=== PATIENT | male | born 1955 | race Caucasian/White ===

== ENCOUNTER 2017-11-08 10:54 | Emergency (ER) | payer BC ==
[2017-11-08 14:34] LABS: #Basophils 0.1 thou/uL (0.0-0.2); #Eosinphils 0.2 thou/uL (0.0-0.7); #Lymphocytes 1.9 thou/uL (1.20-3.40); #Monocytes 0.6 thou/uL (0.11-0.59); #Neutrophils 4.5 thou/uL (1.40-6.50); %Basophils 0.8 % (0.0-1.0); %Eosinophils 2.7 % (0.0-10.0); %Lymphocytes 25.8 % (21.0-51.0); %Monocytes 8.6 % (0.0-10.0); %Neutrophils 62.2 % (42.0-75.0); Hemoglobin 14.3 g/dL (14.0-18.0); Mean Corpuscular HGB CONC 31.9 g/dL (32.0-36.0); Mean Corpuscular Hemoglobin 30.6 pg (27.0-31.0); Mean Corpuscular Volume 95.8 fL (78.0-98.0); Mean Platelet Volume 8.1 fL (7.4-10.4); Platelet Count 198 thou/uL (130-400); RBC Distribution Width 12.8 % (11.5-14.5); Red Blood Cell (RBC) Count 4.68 mill/uL (4.70-6.10); White Blood Cell (WBC) Count 7.3 thou/uL (4.8-10.8)
--- NOTE | 2017-11-08 14:43 | RAD ---
CHEST 1 VIEW: Date: 11/08/17 HISTORY: Dyspnea. COMPARISON: Radiograph dated 10/03/16. FINDINGS: There are layering opacities in both lung bases and mild blunting of both costophrenic sulci, althoug h the lungs are hypoinflated. Cardiac silhouette and mediastinal contours are similar. No acute osseo us abnormality. IMPRESSION: Linear opacities both lower lobes, likely sequelae of combination of atelectasis due to lung hypoinfl ation interposed on scarring. No definitive evidence of pneumonia. POS: [facility]
[2017-11-08 14:55] LABS: ALT (SGPT) 16 U/L (8-55); AST (SGOT) 18 U/L (5-34); Albumin 4.1 g/dL (3.5-5.0); Alkaline Phosphatase 73 U/L (40-150); Anion Gap 10 mmol/L (10-20); BUN (Urea Nitrogen) 17 mg/dL (8.4-25.7); Bilirubin, Total 0.3 mg/dL (0.2-1.2); CK (CPK) 61 U/L (30-200); Calc. Creatinine Clearance 0 mL/min (70-130); Calcium 9.4 mg/dL (7.8-10.44); Carbon Dioxide 33 mmol/L (22-29); Chloride 101 mmol/L (98-107); Estimated GFR-MDRD 72; Globulin 2.9 g/dL (2.4-3.5); Glucose 91 mg/dL (70-105); Potassium 4.6 mmol/L (3.5-5.1); Sodium 139 mmol/L (136-145)
[2017-11-08 15:14] LABS: CKMB 2.6 ng/mL (0-6.6); Troponin I Less than 0.010 ng/mL (< 0.028)
--- NOTE | 2017-11-10 12:42 | EKG ---
Test Reason : Blood Pressure : / mmHG Vent. Rate : 086 BPM Atrial Rate : 086 BPM P-R Int : 120 ms QRS Dur : 090 ms QT Int : 358 ms P-R-T Axes : 076 -72 052 degrees QTc Int : 428 ms Normal sinus rhythm Left anterior fascicular block Abnormal ECG Confirmed by MEHRAN STEPHEN, CRISTOPHER ([id number]), photograph editor OCTAVIA MILLS ([id number]) on 11/10/2017 12:42:01 PM Referred By: Confirmed By:CRISTOPHER LAURENT MD
== END 2017-11-08 15:52 | disposition home or self-care (01) ==
LOC: ERS 10:54
DX: J44.9 Chronic obstructive pulmonary disease, unspecified (principal); F17.210 Nicotine dependence, cigarettes, uncomplicated; Z71.6 Tobacco abuse counseling; I48.91 Unspecified atrial fibrillation; Z79.899 Other long term (current) drug therapy; Z79.82 Long term (current) use of aspirin
CPT/HCPCS: 36415; 71045; 80053; 82553; 83880; 84484; 85025; 85379; 93005; 94640; 99406; J7620

== ENCOUNTER 2017-12-04 00:22 | Observation (INO) | payer BC ==
[2017-12-04] MEDS ORDERED: Nitroglycerin 0.4 MG TAB (25 Tab Bottle) ONE (01:07)
[2017-12-04 01:30] LABS: #Basophils 0.1 thou/uL (0.0-0.2); #Eosinphils 0.2 thou/uL (0.0-0.7); #Monocytes 1.1 thou/uL (0.11-0.59); #Neutrophils 7.9 thou/uL (1.40-6.50); %Basophils 0.6 % (0.0-1.0); %Eosinophils 1.9 % (0.0-10.0); %Lymphocytes 17.8 % (21.0-51.0); %Monocytes 9.5 % (0.0-10.0); %Neutrophils 70.2 % (42.0-75.0); Hemoglobin 15.5 g/dL (14.0-18.0); Mean Corpuscular HGB CONC 32.7 g/dL (32.0-36.0); Mean Corpuscular Hemoglobin 31.2 pg (27.0-31.0); Mean Corpuscular Volume 95.2 fL (78.0-98.0); Mean Platelet Volume 8.1 fL (7.4-10.4); Platelet Count 214 thou/uL (130-400); RBC Distribution Width 12.8 % (11.5-14.5); Red Blood Cell (RBC) Count 4.98 mill/uL (4.70-6.10); White Blood Cell (WBC) Count 11.3 thou/uL (4.8-10.8)
[2017-12-04 01:42] LABS: ALT (SGPT) 22 U/L (8-55); AST (SGOT) 21 U/L (5-34); Albumin 4.4 g/dL (3.5-5.0); Alkaline Phosphatase 80 U/L (40-150); Anion Gap 15 mmol/L (10-20); BUN (Urea Nitrogen) 29 mg/dL (8.4-25.7); Bilirubin, Total 0.3 mg/dL (0.2-1.2); Calc. Creatinine Clearance 0 mL/min (70-130); Calcium 9.3 mg/dL (7.8-10.44); Carbon Dioxide 29 mmol/L (22-29); Chloride 101 mmol/L (98-107); Estimated GFR-MDRD 57; Globulin 2.7 g/dL (2.4-3.5); Glucose 102 mg/dL (70-105); Potassium 4.9 mmol/L (3.5-5.1); Protein, Total 7.1 g/dL (6.0-8.3); Sodium 140 mmol/L (136-145)
[2017-12-04 01:45] LABS: Troponin I 0.018 ng/mL (< 0.028)
[2017-12-04] MEDS ORDERED: Water For Inject, Bacteriostat 30 ML ONE (02:20)
[2017-12-04] MEDS ORDERED: methylPREDNISolone Sod Succ/PF 125 MG/2 ML VIAL ONE (02:20)
[2017-12-04] MEDS ORDERED: Ondansetron ODT 4 MG TAB SL PRN (03:51)
[2017-12-04] MEDS ORDERED: Ondansetron HCl/PF 4 MG/2 ML Vial IVP PRN (03:51)
[2017-12-04] MEDS ORDERED: Acetaminophen 325 MG TAB PO PRN (03:51)
[2017-12-04] MEDS ORDERED: Aspirin 300 MG Suppository PR SCH (04:45)
[2017-12-04 04:47] LABS: Troponin I 0.013 ng/mL (< 0.028)
[2017-12-04 07:28] LABS: Troponin I 0.014 ng/mL (< 0.028)
--- NOTE | 2017-12-04 08:07 | CT ---
PRELIMINARY REPORT/[facility]/EMERGENTY AFTER-HOURS PROCEDURE CT Angiography Chest With Intravenous Contrast EXAM DATE/TIME: 12/04/2017 3:04 AM CLINICAL HISTORY: 61 years old, male; Pain; Chest pain; Type not specified; Patient HX: 61 yo m presents to ed with [facility] pain. PT reports chest pain/pressure that started around 9: 45 pm last night while sitting in his chair at home, with associated dizziness and lightheadedness TECHNIQUE: Axial computed tomographic angiography images of the chest with intravenous contrast using CT angiography protocol. MIP reconstructed images were created and reviewed. COMPARISON: No relevant prior studies available. FINDINGS: Pulmonary arteries: Some motion artifact noted, mostly on the left. No pulmonary embolus identified. Aorta: No aortic aneurysm. No aortic dissection. Lungs: Paraseptal and mild centrilobular emphysematous changes. Calcified right upper lobe granuloma. No mass or consolidation. Pleural space: No pneumothorax. No pleural effusion. Heart: Unremarkable. No pericardial effusion. Bones/joints: Unremarkable. No acute fracture. Soft tissues: Small fat containing abdominal wall hernia in the epigastrium. Lymph nodes: Subcentimeter bilateral hilar and mediastinal lymph nodes, some calcified. Upper abdomen: Small medial diaphragmatic hernia on the left containing fat and apparently part of th e adrenal gland. Several small bilateral renal cysts. Calcified splenic granulomas. IMPRESSION: No acute findings. Thank you for allowing us to participate in the care of your patient. Dictated and Authenticated by: Albert Wilson MD 12/04/2017 4:05 AM Central Time ([place] & [place]) FINAL REPORT CT ANGIOGRAM OF THE CHEST: HISTORY: Hypotension. Dyspnea. COMPARISON: None. TECHNIQUE: CT angiogram of the chest was performed in the axial plane. Three-dimensional reformatted images are submitted for interpretation. FINDINGS: This report is in agreement with the preliminary report by [facility]. No evidence of pulmonary arterial em bolism to the level of the segmental arteries. There are emphysematous changes as described in the p reliminary report by [facility]. No consolidation. Bilateral lower lobe atelectasis is suspected. Additio nal findings as reported in the preliminary report by [facility]. POS: [facility]
--- NOTE | 2017-12-04 08:20 | RAD ---
CHEST 1 VIEW: HISTORY: Chest pain. COMPARISON: Chest radiograph 11/08/2017. FINDINGS: There are chronic increased interstitial markings in the lung bases, likely scarring. No pneumothora x. No effusion. No acute osseous abnormality. IMPRESSION: No acute intrathoracic abnormality. POS: [facility]
[2017-12-04 08:38] VITALS: BP 113/74; TEMP 97.4
--- NOTE | 2017-12-04 10:37 | SS ---
DATE OF ADMISSION: 12/04/2017 DATE OF DISCHARGE: 12/04/2017 DISCHARGE DISPOSITION: Home. FOLLOWUP: 1. Follow up with batch dumper at [facility] or Dr. Ventura in 1 week. Please note that Dr. Ventura is ou t of [facility]. 2. Follow up with [facility] in 1 week. ALLERGIES: No known drug allergies. DISCHARGE MEDICATIONS: Same as admission medications. CHIEF COMPLAINT: Chest discomfort. HISTORY OF PRESENT ILLNESS: The patient is a 61-year-old male with paroxysmal atrial fibrillation wi th a negative cardiac catheterization in 07/2016 presented to the emergency room with chest discomfor t that started around 10:00 p.m. last night. He was resting at home. It was epigastric/substernal a ssociated with lightheadedness and dizziness. It was dull in nature without any aggravating or relie ving factor. He denies any radiation. No nausea, vomiting, diaphoresis or syncope reported. He int ermittently gets this kind of pain for which he takes an extra dose of aspirin. He was seen in the e mergency room 2 weeks ago for COPD exacerbation. In the emergency room, his EKG showed sinus rhythm with left anterior fascicular block without signif icant ST-T wave changes. CT angiogram of the chest as well as chest x-ray was negative. His troponi ns were negative. PAST MEDICAL HISTORY: 1. Paroxysmal atrial fibrillation. He was admitted at this facility in 07/2016 for this reason. An ticoagulation was started. He is currently on aspirin per [facility]. He states that Eliquis was dis continued. Eliquis was discontinued by his primary care physician. 2. Cardiomyopathy. His ejection fraction was 40% range on last admission. 3. History of tobacco abuse. He quit smoking recently. He is currently on Chantix. 4. Chronic obstructive pulmonary disease. PAST SURGICAL HISTORY: 1. Cardiac catheterization last year which was negative. 2. Hernia repair. ALLERGIES: No known drug allergies. CURRENT HOME MEDICATIONS: Aspirin 325 mg daily, Coreg 3.125 mg b.i.d., DuoNebs as needed, lisinopril 10 mg daily, Aleve as needed, Lasix 20 mg daily, Chantix twice a day. SOCIAL HISTORY: As discussed above. He denies any alcohol use. He lives at home with his family. He is FULL CODE. FAMILY HISTORY: Positive for heart disease. REVIEW OF SYSTEMS: The following complete review of systems was negative, unless otherwise mentioned in the HPI or below: Constitutional: Weight loss or gain, ability to conduct usual activities. Skin: Rash, itching. Eyes: Double vision, pain. ENT/Mouth: Nose bleeding, neck stiffness, pain, tenderness. Cardiovascular: Palpitations, dyspnea on exertion, orthopnea. Respiratory: Shortness of breath, wheezing, cough, hemoptysis, fever or night sweats. Gastrointestinal: Poor appetite, abdominal pain, heartburn, nausea, vomiting, constipation, or diarr hea. Genitourinary: Urgency, frequency, dysuria, nocturia. Musculoskeletal: Pain, swelling. Neurologic/Psychiatric: Anxiety, depression. Allergy/Immunologic: Skin rash, bleeding tendency. PHYSICAL EXAMINATION: VITAL SIGNS: In the emergency room showed temperature 97.4, respirations 16, pulse of 103, blood pre ssure 107/62 with O2 saturation 96% on room air. GENERAL: A 61-year-old male in no apparent distress. Denies any chest pain. HEENT: Head is atraumatic, normocephalic. Sclerae are anicteric. Moist mucous membrane, no oral le sulaiman. NECK: Supple, no JVD, no carotid bruit. LUNGS: Clear to auscultation bilaterally, no wheezing, rales or rhonchi. HEART: S1, S2 present. Regular rate and rhythm. No murmur, rubs, or gallops appreciated. No repro ducible chest wall tenderness. ABDOMEN: Soft, nontender, bowel sounds present. EXTREMITIES: No edema or calf tenderness. NEUROLOGIC: Grossly nonfocal, moves all four extremities. PSYCHIATRIC: Alert, awake, oriented x3. SKIN: Warm and dry. LYMPH NODES: No palpable lymph nodes in the neck. PERIPHERAL VASCULAR: Radial pulses palpable bilaterally. MUSCULOSKELETAL: No joint swelling or tenderness. LABORATORY DATA: Troponin negative. CBC showed WBC 11.3 with hemoglobin 15.5, potassium 4.9, chlori de 101 and bicarbonate 29. BNP was 16.6. IMAGING DATA: EKG and chest x-ray by my review as discussed above. IMPRESSION: 1. Atypical chest pain. Acute coronary syndrome has been ruled out. A chest pain is probably secon elvia to GERD. Another possibility could be paroxysmal atrial fibrillation. He remained in sinus rhy thm during this hospitalization. His EKG showed sinus rhythm. He was started on amiodarone and Eliq uis last admission; however, this has been discontinued as outpatient. He was advised to follow up w [facility] either at [facility] or Dr. Ventura. He has not seen Dr. Ventura for more than a year. The patient states that he cannot afford Eliquis. We will continue aspirin for now. Dr. Ventura is ou t of town this week. 2. Chronic obstructive pulmonary disease. We will continue his home medications. 3. Nonischemic cardiomyopathy, ejection fraction 40% range. We will continue TONE inhibitor, beta bl ockers. His BNP is normal. We will continue low dose Lasix. 4. Tobacco dependence. He recently quit smoking and is currently on Chantix. 5. Obesity with a BMI at 30. 6. Chronic kidney disease stage 3. 7. Negative cardiac catheterization in 2017. Plan of care was discussed with the patient in detail, he stated understanding.
[2017-12-04] MEDS ORDERED: ISOVUE-370 76%-LOCM 1 ML ONE (15:55)
== END 2017-12-04 10:57 | disposition home or self-care (01) ==
LOC: ERS 00:22 → 2SW 02:30
PROVIDERS: ADMIT Hospitalist; ATTEND Hospitalist
DX: R07.89 Other chest pain (principal); I48.0 Paroxysmal atrial fibrillation; J44.9 Chronic obstructive pulmonary disease, unspecified; I42.8 Other cardiomyopathies; N18.3 Chronic kidney disease, stage 3 (moderate); E66.9 Obesity, unspecified; Z68.30 Body mass index [BMI] 30.0-30.9, adult; Z87.891 Personal history of nicotine dependence; Z79.82 Long term (current) use of aspirin; Z79.899 Other long term (current) drug therapy
CPT/HCPCS: 36415; 71045; 71275; 80053; 82553; 83880; 84484; 85025; 93005; 96374; 99406; G0378; J2930; J7620

== ENCOUNTER 2018-06-06 13:57 | Inpatient (IN) | payer BC, OTHER, SELFPAY ==
[2018-06-06] MEDS ORDERED: Diltiazem 125 MG/25 ML ONE (14:23)
--- NOTE | 2018-06-06 14:53 | RAD ---
SINGLE VIEW CHEST: Date: 06/06/18 COMPARISON: 12/04/17. HISTORY: Syncope and dyspnea. FINDINGS: Single view of the chest shows normal sized cardiomediastinal silhouette. There is elevation of the r ight hemidiaphragm. Increased interstitial lung markings are present. There is no evidence of consoli dation, mass, or pleural effusion. IMPRESSION: No evidence of acute cardiopulmonary disease. POS: [facility]
[2018-06-06 15:13] LABS: #Eosinphils 0.1 thou/uL (0.0-0.7); #Lymphocytes 1.9 thou/uL (1.20-3.40); #Monocytes 1.1 thou/uL (0.11-0.59); #Neutrophils 7.3 thou/uL (1.40-6.50); %Basophils 0.4 % (0.0-1.0); %Eosinophils 0.8 % (0.0-10.0); %Monocytes 10.5 % (0.0-10.0); %Neutrophils 70.3 % (42.0-75.0); Hemoglobin 13.8 g/dL (14.0-18.0); Mean Corpuscular HGB CONC 32.1 g/dL (32.0-36.0); Mean Corpuscular Hemoglobin 30.3 pg (27.0-31.0); Mean Corpuscular Volume 94.4 fL (78.0-98.0); Mean Platelet Volume 8.2 fL (7.4-10.4); Platelet Count 215 thou/uL (130-400); Red Blood Cell (RBC) Count 4.54 mill/uL (4.70-6.10); White Blood Cell (WBC) Count 10.3 thou/uL (4.8-10.8)
[2018-06-06 15:30] LABS: ALT (SGPT) 9 U/L (8-55); AST (SGOT) 13 U/L (5-34); Albumin 3.6 g/dL (3.4-4.8); Alkaline Phosphatase 92 U/L (40-150); Anion Gap 10 mmol/L (10-20); BUN (Urea Nitrogen) 11 mg/dL (8.4-25.7); Bilirubin, Total 0.4 mg/dL (0.2-1.2); Calc. Creatinine Clearance 0 mL/min (70-130); Carbon Dioxide 36 mmol/L (23-31); Chloride 95 mmol/L (98-107); Estimated GFR-MDRD 49; Glucose 91 mg/dL (80-115); Magnesium 2.1 mg/dL (1.6-2.6); Potassium 4.9 mmol/L (3.5-5.1); Protein, Total 6.6 g/dL (5.8-8.1); Sodium 136 mmol/L (136-145)
--- NOTE | 2018-06-06 15:59 | PDOC.FPRHP ---
- History of Present Illness Chief Complaint: SOB History of Present Illness: 62 yo M with PMH a fib, COPD, HFrEF presents for weakness, SOB that began this morning at 11:00. 3 siblings in room at time of interview. Notes started to feel short of breath, heart beating fast, lightheaded. Had few episodes vomiting and reports "passing out" 5-6 times at home. Fell but denies hitting head. No cough, increased sputum, fever. Has h/o BLE edema that has been worse previously. Home O2 requirement of 2L, denies ever being on Bipap before. Last hospitalized at [facility] [place] [place], 02/2018 for COPD exacerbation. Since this hospitalization he has had full body tingling/burning sensation that keeps him from sleeping at night. Has been told it is RLS. PCP, cardiology, caustic room attendant (Pop) at the [facility]. ED Course: chi harp drip - Allergies/Adverse Reactions Allergies Allergy/AdvReac Type Severity Reaction Status Date / Time No Known Allergies Allergy Verified 09/23/13 13:26 - Home Medications Medication Instructions Recorded Confirmed Type Furosemide [Lasix] 20 mg PO DAILY #30 tab 07/22/16 06/06/18 Rx Carvedilol [Coreg] 6.25 mg PO BID 10/04/16 06/06/18 History Lisinopril 10 mg PO DAILY 10/04/16 06/06/18 History Albuterol Sulfate [Proair HFA] 1 - 2 puff INH PRN PRN 12/04/17 06/06/18 History Aspirin 325 mg PO DAILY 12/04/17 06/06/18 History Ipratropium/Albuterol Sulfate 3 ml NEB TID 12/04/17 06/06/18 History [DuoNeb] Naproxen Sodium [Aleve] 220 mg PO TID PRN 12/04/17 06/06/18 History Escitalopram Oxalate 20 mg PO DAILY 06/06/18 06/06/18 History Gabapentin 400 mg PO BID 06/06/18 06/06/18 History Mometasone Furoate [Asmanex 1 puff INH QPM 06/06/18 06/06/18 History Twisthaler] Mometasone Furoate [Asmanex 2 puff INH BID 06/06/18 06/06/18 History Twisthaler] Tiotropium Br/Olodaterol HCl 2.5 gm IH QAM 06/06/18 06/06/18 History [Stiolto Respimat Inhal [place]] Tiotropium Br/Olodaterol HCl 2.5 gm IH QAM 06/06/18 06/06/18 History [Stiolto Respimat Inhal [place]] rOPINIRole HCl [Ropinirole HCl] 2 tab PO HS 06/06/18 06/06/18 History traZODone HCl [Trazodone HCl] 100 mg PO HS 06/06/18 06/06/18 History - History PMHx: a fib, COPD, HFrEF (echo 07/2016 with EF 35-40%), RLS PSHx: cath 2016, hernia x2, ablation (in previous H&P but patient denies) FHx: father-prostate cancer, brother-kidney cancer, sister-colon cancer Social: Current pack year, 1PPD for 45 years. No tobacco, alcohol, drug use. - Review of Systems General: reports: fatigue. denies: fever/chills, weight/appetite/sleep changes Eyes: denies: vision changes Respiratory: reports: cough (chronic), shortness of breath, exercise intolerance Cardiovascular: reports: palpitation, edema. denies: chest pain Gastrointestinal: reports: vomiting. denies: diarrhea, abdominal pain Genitourinary: denies: dysuria Skin: denies: rashes Musculoskeletal: reports: swelling. denies: pain Neurological: reports: numbness, syncope, weakness Psychological: reports: anxiety - Vital signs Pulse: 134, Resp: 27, O2 sat: 98 on bipap, temp 98.2 - Physical Exam Constitutional: other (on bipap) HEENT: normocephalic and atraumatic, grossly normal vision, grossly normal hearing Neck: other (large neck) Heart: normal S1/S2, other (1+ RLE pitting edema, trace LLE edema. irregular rate) Lungs: no retractions, other (mild crackles) Abdomen: soft, non-tender, bowel sounds present Musculoskeletal: other (generalized weakness) Skin: no rash/lesions Heme/Lymphatic: no unusual bruising or bleeding Psychiatric: normal mood and affect FMR H&P: Results - Labs Result Diagrams: 06/07/18 04:51 06/07/18 04:51 Lab results: WBC 10.3 thou/uL (4.8-10.8) 06/06/18 14:38 Hgb 13.8 g/dL (14.0-18.0) L 06/06/18 14:38 Hct 42.9 % (42.0-52.0) 06/06/18 14:38 MCV 94.4 fL (78.0-98.0) 06/06/18 14:38 Plt Count 215 thou/uL (130-400) 06/06/18 14:38 Neutrophils % 70.3 % (42.0-75.0) 06/06/18 14:38 Sodium 136 mmol/L (136-145) 06/06/18 14:38 Potassium 4.9 mmol/L (3.5-5.1) 06/06/18 14:38 Chloride 95 mmol/L (98-107) L 06/06/18 14:38 Carbon Dioxide 36 mmol/L (23-31) H 06/06/18 14:38 BUN 11 mg/dL (8.4-25.7) 06/06/18 14:38 Creatinine 1.45 mg/dL (0.7-1.3) H 06/06/18 14:38 Glucose 91 mg/dL (80-115) 06/06/18 14:38 Calcium 9.0 mg/dL (7.8-10.44) 06/06/18 14:38 Total Bilirubin 0.4 mg/dL (0.2-1.2) 06/06/18 14:38 AST 13 U/L (5-34) 06/06/18 14:38 ALT 9 U/L (8-55) 06/06/18 14:38 Alkaline Phosphatase 92 U/L (40-150) 06/06/18 14:38 B-Natriuretic Peptide 25.5 pg/mL (0-100) 06/06/18 14:38 Serum Total Protein 6.6 g/dL (5.8-8.1) 06/06/18 14:38 Albumin 3.6 g/dL (3.4-4.8) 06/06/18 14:38 FMR H&P: A/P - Problem List (1) Acute and chronic respiratory failure with hypoxia Current Visit: Yes Status: Acute Code(s): J96.21 - ACUTE AND CHRONIC RESPIRATORY FAILURE WITH HYPOXIA (2) Atrial fibrillation with rapid ventricular response Current Visit: Yes Status: Acute Code(s): I48.91 - UNSPECIFIED ATRIAL FIBRILLATION (3) HFrEF (heart failure with reduced ejection fraction) Current Visit: Yes Status: Acute Code(s): I50.20 - UNSPECIFIED SYSTOLIC ( CONGESTIVE) HEART FAILURE (4) Acute kidney injury Current Visit: Yes Status: Acute Code(s): N17.9 - ACUTE KIDNEY FAILURE, UNSPECIFIED (5) COPD (chronic obstructive pulmonary disease) Current Visit: Yes Status: Chronic Qualifiers: COPD type: unspecified COPD Qualified Code(s): J44.9 - Chronic obstructive pulmonary disease, unspecified (6) Restless legs syndrome (RLS) Current Visit: Yes Status: Chronic (7) Anxiety Current Visit: Yes Status: Chronic Code(s): F41.9 - ANXIETY DISORDER, UNSPECIFIED (8) CKD (chronic kidney disease) Current Visit: Yes Status: Chronic Code(s): N18.9 - CHRONIC KIDNEY DISEASE, UNSPECIFIED - Plan Acute hypoxic respiratory failure - requiring Bipap in ED, uses 2L NC at home. - unclear cause at this time. Does not appear to be infectious, symptoms more consistent with CHF exacerbation rather than COPD exac though BNP wnl - Lasix 40 IV ordered, will monitor fluid status with strict I/Os, daily weights and adjust diuresis as necessary - CXR showed elevated R hemidiaphragm, increased interstitial lung markings - VBG pending. Will repeat CXR this evening and adjust plan pending clinical course. Will not start steroids at this time. A fib with RVR - HR 130s with dilt drip @ 5, ER titrating up now. ER reports HR was 170s. - hx of a fib, unsure if has had ablation in past. Record from admission last year showed reported NSR. - EKG shows a fib with RVR - trop neg x1, continue to trend HFrEF - last echo in our record with EF 35-40% in 07/2016 - BNP 25 - continue home carvedilol, lisinopril, aspirin - not on statin, will check lipids - will consider repeating echo DEANDRE on CKD3 - Cr 1.45 on admission - will continue to monitor on am bmp COPD - pt reports 2L NC. Has albuterol and stiolto inhalers at home - duonebs prn RLS - unusual complaint of full body tingling/burning - continue home ropinirole, gabapentin - check B12, folate, A1c Anxiety/depression - continue home escitalopram, trazodone Ppx: lovenox Diet: HH, NPO while on bipap Dispo: admit to IMCU, expect stay >2 midnights PCP: [facility] Case discussed with Dr. Del Rosario FMR H&P: [facility] - Pertinent history 62 yo male here for syncope and vomiting. Reports it started this morning when he felt light headed around 11:00am. Patient reports having 5 episodes of syncope today, mostly unwitnessed. Also had an episode of emesis after one of the episodes. Pt denies head trauma, but again falls were unwitnessed. Pt lives at home alone and uses 2L NC always, even when sleeping, at home, has not been having worsening O2 requirement recently due to COPD. Also has been having heart palpitations, uncertain on time course. Assoc body tingling. Decreased sleep 2/2 leg pain which has been treated in the past as restless leg. Hx of Afib with RVR, tobacco abuse, hx of cardiac cath. In ER patient was found to be in afib with RVR via EKG with rate in the 140s. In the room, patient had hypoxia and required bipap 40% fio2. On exam, HR elevated at 130s-150. 105/70. O2sat moving from low 80s% when talking to >94% when resting. RR: 27. - Pertinent findings GEN: NAD, breathing with bipap PULM: trace diffuse crackles CARD: irreg irreg, tachy EXT: b/l pitting edema LE BNP: 25 Cr: 1.45 EKG: afib with rate 140s - Plan Date/Time: 06/06/18 [id number] IAlexis DO, have evaluated this patient and agree with findings/plan as outlined by dental internship resident. Pertinent changes/additions are listed here. #acute hypoxic resp failure -mixed picture of fluid overload due to her leg edema as well as crackles on CXR ; also consideration for dehydration due to vomiting, though BUN/Cr is not impressive for dehydration -will give Lasix and reassess -recheck CXR -VBG #Afib with RVR -started on diltiazem 5units, increased to 10units -continue with diltiazem #DEANDRE #HTN #RLS Addendum - Attending - Attending Attestation Date/Time: 06/07/18 8305 I personally evaluated the patient and discussed the management with the team on day of admission. I agree with the History, Examination, Assessment and Plan documented above with any addition or exceptions noted below.
[2018-06-06] MEDS ORDERED: Ondansetron PF 4 MG/2 ML Vial IVP PRN (17:15)
[2018-06-06] MEDS ORDERED: Ondansetron ODT 4 MG TAB PO PRN (17:15)
[2018-06-06] MEDS ORDERED: Acetaminophen 325 MG TAB PO PRN (17:15)
--- NOTE | 2018-06-06 17:25 | PDOC.EVN ---
Event Note - Event Note Event Note: 62 y/o M with PMH afib, HFrEF, COPD presents with Afib with RVR and several episodes of emesis after this started. He was noted to be in resp failure and placed on bipap with improvement in his saturations. He says he feels a bit better now. No chest pain. On exam he is tachypneic, with mild accessory use, scant bibasilar crackles and no wheezes. He is tachy, irreg, without murmur, with LE edema. I have reviewed his labs and imaging. On POCUS, his lungs exhibit bilateral B lines and I can find no A lines in the bases. He has good air movement. Continue dilt gtt, begin gentle diuresis. Obtain VBG and likely can deescalate to CPAP vs NC. Monitor closely in IMCU. I do not anticipate decompensation.
[2018-06-06] MEDS ORDERED: Furosemide 20 MG/2 ML VIAL ONE (17:40)
[2018-06-06 17:42] LABS: Troponin I 0.063 ng/mL (< 0.028)
[2018-06-06 20:38] LABS: Troponin I 0.078 ng/mL (< 0.028)
[2018-06-06] MEDS: Carvedilol 6.25 MG TAB PO SCH (21:51)
[2018-06-06] MEDS: Gabapentin 400 MG CAP PO SCH (21:51)
[2018-06-06] MEDS: rOPINIRole HCl 1 MG TAB PO SCH (21:52)
[2018-06-06] MEDS: Nicotine 21 MG PATCH TD SCH (21:52)
--- NOTE | 2018-06-06 21:56 | RAD ---
EXAM: Chest one view: HISTORY: Difficulty breathing COMPARISON: 06/06/2018 FINDINGS: Monitor leads overlie the chest. Heart size: Within normal limits. The lungs: Scattered linear and interstitial parenchymal changes in the perihilar regions and both desi ng bases more so on the right with associated right hemidiaphragm elevation. No significant new process. IMPRESSION: Stable increased markings in the bases and right hemidiaphragm elevation. No new process. Signed repo rt.
[2018-06-06 22:09] VITALS: BMI 35.1
[2018-06-06] MEDS ORDERED: Diltiazem HCl 125 MG, Admixture Fee 1 EACH in Sodium Chloride 0.9% 100 ML IVPB SCH (23:30)
[2018-06-07 05:22] LABS: #Basophils 0.1 thou/uL (0.0-0.2); #Eosinphils 0.1 thou/uL (0.0-0.7); #Lymphocytes 1.8 thou/uL (1.20-3.40); #Monocytes 0.7 thou/uL (0.11-0.59); #Neutrophils 4.6 thou/uL (1.40-6.50); %Eosinophils 1.5 % (0.0-10.0); %Lymphocytes 24.9 % (21.0-51.0); %Monocytes 9.9 % (0.0-10.0); %Neutrophils 62.7 % (42.0-75.0); Hemoglobin 13.4 g/dL (14.0-18.0); Mean Corpuscular HGB CONC 30.6 g/dL (32.0-36.0); Mean Corpuscular Hemoglobin 28.8 pg (27.0-31.0); Mean Corpuscular Volume 93.9 fL (78.0-98.0); Mean Platelet Volume 7.7 fL (7.4-10.4); Platelet Count 178 thou/uL (130-400); Red Blood Cell (RBC) Count 4.65 mill/uL (4.70-6.10); White Blood Cell (WBC) Count 7.4 thou/uL (4.8-10.8)
[2018-06-07 05:35] LABS: Anion Gap 10 mmol/L (10-20); BUN (Urea Nitrogen) 17 mg/dL (8.4-25.7); Calc. Creatinine Clearance 94 mL/min (70-130); Carbon Dioxide 34 mmol/L (23-31); Cardiac Risk 4.3 (Less than 4.5); Chloride 95 mmol/L (98-107); Cholesterol 124 mg/dl (< 200 Desired); Estimated GFR-MDRD 56; Glucose 109 mg/dL (80-115); HDL Cholesterol 29 mg/dL (>60 Neg Risk); LDL Cholesterol, Calculated 80 mg/dL; Potassium 3.9 mmol/L (3.5-5.1); Sodium 135 mmol/L (136-145); Triglycerides 73 mg/dL (Less than 150)
[2018-06-07 06:07] LABS: Folate (Folic Acid) 9.5 ng/mL (7.0-31.4)
--- NOTE | 2018-06-07 06:49 | PDOC.FM ---
- Subjective Subjective: Patient still on bipap, was on NC 3L satting well last night but patient requested bipap for comfort. Denies any pain. - Objective Vital Signs & Weight: Vital Signs (12 hours) Temp Pulse Resp BP Pulse Ox 06/07/18 03:48 97.2 F L 06/07/18 02:25 14 100 06/07/18 01:38 80 20 99 06/07/18 00:00 97.7 F 06/06/18 21:51 137/83 06/06/18 20:00 97 06/06/18 19:35 98.4 F Weight Weight 111.493 kg Most Recent Monitor Data Heart Rate from ECG 59 NIBP 120/78 NIBP BP-Mean 92 Respiration from ECG 13 SpO2 98 I&O: 06/05/18 06/06/18 06/07/18 06:59 06:59 06:59 Intake Total 575 Output Total 340 Balance 235 Result Diagrams: 06/07/18 04:51 06/07/18 04:51 Phys Exam - Physical Examination on bipap, relaxed and sleepy Respiratory: no wheezing, clear to auscultation bilateral Cardiovascular: irregular Gastrointestinal: soft, non-tender, positive bowel sounds 1+ pitting edema LE, L>R Neurological: non-focal Skin: normal turgor Dx/Plan (1) Acute and chronic respiratory failure with hypoxia Code(s): J96.21 - ACUTE AND CHRONIC RESPIRATORY FAILURE WITH HYPOXIA Status: Acute (2) Atrial fibrillation with rapid ventricular response Code(s): I48.91 - UNSPECIFIED ATRIAL FIBRILLATION Status: Acute (3) HFrEF (heart failure with reduced ejection fraction) Code(s): I50.20 - UNSPECIFIED SYSTOLIC (CONGESTIVE) HEART FAILURE Status: Acute (4) Acute kidney injury Code(s): N17.9 - ACUTE KIDNEY FAILURE, UNSPECIFIED Status: Acute (5) COPD (chronic obstructive pulmonary disease) Status: Chronic Qualifiers: COPD type: unspecified COPD Qualified Code(s): J44.9 - Chronic obstructive pulmonary disease, unspecified (6) Restless legs syndrome (RLS) Status: Chronic (7) Anxiety Code(s): F41.9 - ANXIETY DISORDER, UNSPECIFIED Status: Chronic (8) CKD (chronic kidney disease) Code(s): N18.9 - CHRONIC KIDNEY DISEASE, UNSPECIFIED Status: Chronic - Plan Plan: Acute hypoxic respiratory failure - requiring Bipap in ED, uses 2L NC at home. - unclear cause at this time. Afebrile, no leukocytosis. Does not appear to be infectious, symptoms more consistent with CHF exacerbation rather than COPD exac though BNP wnl. Anxiety and felt need for bipap could also be contributing. Plan to wean off bipap today - Lasix 40 IV x1 in ED - CXR showed elevated R hemidiaphragm, increased interstitial lung markings - VBG pending A fib with RVR - rate 170s in ED, now improved rate was 60s this am, titrate dilt drip down to 2.5 - hx of a fib, unsure if has had ablation in past. Record from admission last year showed reported NSR. - EKG a fib with RVR - trop indeterminate - consult cardiology HFrEF - last echo in our record with EF 35-40% in 07/2016 - BNP 25 - continue home carvedilol, lisinopril, aspirin - ASCVD 14%, will start statin - will consider repeating echo DEANDRE on CKD3, improved - Cr 1.45 on admission - will continue to monitor COPD - pt reports home 2L NC. Has albuterol and stiolto inhalers at home - duonebs prn, continue BID inhaler RLS - unusual complaint of full body tingling/burning - continue home ropinirole, gabapentin - B12, folate, A1c all wnl Anxiety/depression - continue home escitalopram, trazodone Ppx: lovenox Diet: HH, NPO while on bipap Dispo: pending cardiology consult, plan to wean off bipap today Addendum - Attending - Attending Attestation Date/Time: 06/07/18 6730 I personally evaluated the patient and discussed the management with Dr. Blair. I agree with the History, Examination, Assessment and Plan documented above with any addition or exceptions noted below. Acute hypoxic resp failure- off bipap and stable on NC. CHF exac- repeat ECHo. appreciate cardiology recs. A fib with RVR- now in NSR. D/c dilt gtt. left lower chest/upper abdomen pain- most consistent in intercostal muscle strain. xray did not show a rib fracture.
[2018-06-07] MEDS: Mometasone Furoate 120 PUFF 220 MCG INH SCH ×2 (08:10→18:33)
[2018-06-07] MEDS ORDERED: [UNRECOGNIZED DRUG - OTHER] IH SCH (09:00)
[2018-06-07] MEDS ORDERED: Gabapentin 400 MG CAP PO SCH (09:00)
[2018-06-07] MEDS ORDERED: Carvedilol 6.25 MG TAB PO SCH (09:00)
[2018-06-07] MEDS ORDERED: OLODATEROL HCL IH SCH (09:00)
[2018-06-07] MEDS ORDERED: TIOTROPIUM BR IH SCH (09:00)
[2018-06-07] MEDS: Carvedilol 6.25 MG TAB PO SCH ×2 (09:39→21:08)
[2018-06-07] MEDS: Aspirin 325 MG TAB PO SCH (09:39)
[2018-06-07] MEDS: Enoxaparin Sodium 40 MG/0.4 ML SYRINGE SC SCH (09:40)
[2018-06-07] MEDS: Gabapentin 400 MG CAP PO SCH ×2 (09:41→21:08)
[2018-06-07] MEDS: Lisinopril 10 MG TAB PO SCH (09:41)
[2018-06-07] MEDS: Escitalopram Oxalate 20 mg Tablet PO SCH (09:41)
[2018-06-07] MEDS ORDERED: Furosemide 20 MG TAB PO SCH (11:00)
[2018-06-07] MEDS: Azithromycin 250 MG TAB PO SCH (11:46)
--- NOTE | 2018-06-07 13:56 | CON ---
DATE OF CONSULTATION: 06/07/2018 This consultation encompassed 70 minutes time. Period of that time, greater than 50% was spent with the patient and/or at the patient's unit in the hospital. REASON FOR CONSULTATION: COPD exacerbation. CONSULTING PHYSICIAN: [facility]. HISTORY OF PRESENT ILLNESS: The patient is a 62-year-old male, who came into the hospital yesterday with increasing shortness of breath and chest congestion. He has a long history of chronic obstructive pulmonary disease and continued tobacco abuse. He is cared for through the [facility]. He has seen Dr. Sifuentes in my practice in the past, but does not follow with him regularly. The patient was on BiPAP last night, but is now off BiPAP this morning. He states that he is starting to breathe better. He states that he continues to smoke because that is the only thing that keeps the mucus out of his airways. PAST MEDICAL HISTORY: COPD, atrial fibrillation, systolic congestive heart failure, restless legs syndrome. PAST SURGICAL HISTORY: Cardiac catheterization, hernia repair, cardiac ablation. FAMILY MEDICAL HISTORY: Father had prostate cancer, brother had kidney cancer, sister had colon cancer. SOCIAL HISTORY: The patient has been smoking 1 pack per day for at least 45 years. Does not consume alcohol. Does not use illicit drugs. MEDICATIONS: Prior to admission, his home medications are listed in the home medications section of the [employer] computer system. His pertinent Pulmonary medications include, 1. Stiolto Respimat 2 puffs daily. 2. Asmanex Twisthaler 2 puffs twice daily. 3. Albuterol ipratropium nebulization solution. REVIEW OF SYSTEMS: He has had no fever, chills, nausea, vomiting, hematemesis, melena, hematochezia, hematuria, or dysuria. He has had left-sided chest pain after falling. PHYSICAL EXAMINATION: VITAL SIGNS: Temperature 96.9, pulse 57, blood pressure 136/76, O2 saturation 96%. GENERAL: He is 5 feet 10 inches, weighs 245 pounds, body mass index is 35.3. HEENT: Demonstrates a class 3 Mallampati airway. NECK: Demonstrates no adenopathy or JVD. CARDIAC: Regular without murmur. LUNGS: Coarse expiratory rhonchi bilaterally. ABDOMEN: Soft, obese, and nontender. EXTREMITIES: No clubbing, cyanosis, or edema. LABORATORY DATA: White blood cell count 7.4, hematocrit 43.7, and platelet count 178. Sodium 135, potassium 3.9, chloride 95, CO2 of 34, BUN 17, creatinine 1.3, glucose 109. ASSESSMENT: 1. Chronic obstructive pulmonary disease with exacerbation. 2. Atrial fibrillation with rapid ventricular response, requiring Cardizem drip. 3. Continued tobacco abuse. PLAN: 1. Switch nebulization treatments to be administered by [facility] to see if this will help minimize his secretions. These nebulization treatments need to be scheduled every 4 hours. 2. Nicotine patch. 3. Mucolytic therapy. 4. I would start him on antibiotics in an attempt to reduce his secretions. Zithromax would be probably the best thing to use. 5. Smoking cessation has been advised. Job ID: [id number]
[2018-06-07] MEDS: traMADol HCl 50 MG TAB PO PRN (17:23)
[2018-06-07] MEDS: Nicotine 21 MG PATCH TD SCH (17:25)
[2018-06-07] MEDS ORDERED: Mometasone Furoate 120 PUFF 220 MCG INH SCH (21:00)
[2018-06-07] MEDS ORDERED: rOPINIRole HCl 0.5 MG TAB PO SCH (21:00)
[2018-06-07] MEDS: Amiodarone 200 MG TAB PO SCH (21:08)
[2018-06-07] MEDS: rOPINIRole HCl 1 MG TAB PO SCH (21:08)
[2018-06-07] MEDS: guaiFENesin ER 600 MG TAB PO SCH (21:08)
[2018-06-07] MEDS: Atorvastatin Calcium 20 MG TAB PO SCH (21:08)
[2018-06-07] MEDS: Enoxaparin Sodium 120 MG/0.8 ML SYRINGE SC SCH (21:09)
[2018-06-08 04:50] LABS: #Eosinphils 0.1 thou/uL (0.0-0.7); #Lymphocytes 1.5 thou/uL (1.20-3.40); #Monocytes 0.7 thou/uL (0.11-0.59); #Neutrophils 5.8 thou/uL (1.40-6.50); %Basophils 0.3 % (0.0-1.0); %Eosinophils 1.8 % (0.0-10.0); %Lymphocytes 18.6 % (21.0-51.0); %Monocytes 8.5 % (0.0-10.0); %Neutrophils 70.8 % (42.0-75.0); Hemoglobin 13.3 g/dL (14.0-18.0); Mean Corpuscular HGB CONC 32.2 g/dL (32.0-36.0); Mean Corpuscular Hemoglobin 30.2 pg (27.0-31.0); Mean Corpuscular Volume 93.9 fL (78.0-98.0); Mean Platelet Volume 7.6 fL (7.4-10.4); Platelet Count 156 thou/uL (130-400); RBC Distribution Width 12.8 % (11.5-14.5); Red Blood Cell (RBC) Count 4.41 mill/uL (4.70-6.10); White Blood Cell (WBC) Count 8.1 thou/uL (4.8-10.8)
[2018-06-08 05:03] LABS: Anion Gap 10 mmol/L (10-20); BUN (Urea Nitrogen) 18 mg/dL (8.4-25.7); Calc. Creatinine Clearance 126 mL/min (70-130); Calcium 9.2 mg/dL (7.8-10.44); Carbon Dioxide 36 mmol/L (23-31); Chloride 97 mmol/L (98-107); Estimated GFR-MDRD 79; Glucose 103 mg/dL (80-115); Potassium 4.5 mmol/L (3.5-5.1); Sodium 138 mmol/L (136-145)
[2018-06-08] MEDS: Mometasone Furoate 120 PUFF 220 MCG INH SCH ×2 (07:19→19:36)
--- NOTE | 2018-06-08 07:39 | PDOC.FM ---
- Subjective Subjective: Pt reports he did well overnight. He denies pain and states he was up to take a shower without significant dyspnea. - Objective Vital Signs & Weight: Vital Signs (12 hours) Temp Pulse Resp BP Pulse Ox 06/08/18 07:17 84 18 94 L 06/08/18 04:05 97.4 F L 80 16 131/83 98 06/08/18 03:30 93 L 06/08/18 00:00 93 L 06/07/18 21:41 106 H 22 H Weight Weight 111.039 kg Most Recent Monitor Data Heart Rate from ECG 84 NIBP 137/98 NIBP BP-Mean 111 Respiration from ECG 18 SpO2 97 I&O: 06/07/18 06/08/18 06/09/18 06:59 06:59 06:59 Intake Total 575 1098.75 Output Total 340 1725 Balance 235 -626.25 Result Diagrams: 06/08/18 04:33 06/08/18 04:33 Phys Exam - Physical Examination Constitutional: NAD HEENT: moist MMs Neck: no JVD, full ROM Respiratory: wheezing present Cardiovascular: no significant murmur regular rate, irregular rhythm Gastrointestinal: soft, non-tender, no distention, positive bowel sounds Musculoskeletal: edema present (2+ pitting bilaterally) Neurological: moves all 4 limbs Psychiatric: A&O x 3 Skin: cap refill <2 seconds Dx/Plan (1) Acute and chronic respiratory failure with hypoxia Code(s): J96.21 - ACUTE AND CHRONIC RESPIRATORY FAILURE WITH HYPOXIA Status: Acute (2) Acute kidney injury Code(s): N17.9 - ACUTE KIDNEY FAILURE, UNSPECIFIED Status: Acute (3) Atrial fibrillation with rapid ventricular response Code(s): I48.91 - UNSPECIFIED ATRIAL FIBRILLATION Status: Acute (4) HFrEF (heart failure with reduced ejection fraction) Code(s): I50.20 - UNSPECIFIED SYSTOLIC (CONGESTIVE) HEART FAILURE Status: Acute (5) Anxiety Code(s): F41.9 - ANXIETY DISORDER, UNSPECIFIED Status: Chronic (6) CKD (chronic kidney disease) Code(s): N18.9 - CHRONIC KIDNEY DISEASE, UNSPECIFIED Status: Chronic (7) COPD (chronic obstructive pulmonary disease) Status: Chronic Qualifiers: COPD type: unspecified COPD Qualified Code(s): J44.9 - Chronic obstructive pulmonary disease, unspecified (8) Restless legs syndrome (RLS) Status: Chronic - Plan Plan: This is a 62 yo male with a pmh of HTN, COPD, Afib, CKD3, anxiety Acute on chronic hypoxic respiratory failure -Improving o2 sats, currently on 3L nc -COPD vs CHF exacerbation, pending Echo -Azithromycin, duonebs, and lasix Afib with RVR -Regular rate at this point -Consult cardiology and appreciate recommendations HFrEF -Pending Echo, BNP 25 -Continue carvedilol, aspirin -Continue statin DEANDRE on CKD2, resolved COPD -Used home O2 -Continue duonebs and BID inhaler RLS -Continue ropinirole, gabapentin -B12, folate, A1c wnl Anxiety/depression -Continue escitalopram, trazadone
[2018-06-08] MEDS: Furosemide 20 MG TAB PO SCH (08:23)
[2018-06-08] MEDS: Aspirin 325 MG TAB PO SCH (08:23)
[2018-06-08] MEDS: Amiodarone 200 MG TAB PO SCH ×2 (08:23→21:25)
[2018-06-08] MEDS: Escitalopram Oxalate 20 mg Tablet PO SCH (08:23)
[2018-06-08] MEDS: Gabapentin 400 MG CAP PO SCH ×2 (08:24→21:25)
[2018-06-08] MEDS: Carvedilol 6.25 MG TAB PO SCH ×2 (08:24→21:25)
[2018-06-08] MEDS: Enoxaparin Sodium 120 MG/0.8 ML SYRINGE SC SCH (08:24)
[2018-06-08] MEDS: Lisinopril 10 MG TAB PO SCH (08:24)
[2018-06-08] MEDS: guaiFENesin ER 600 MG TAB PO SCH ×2 (08:24→21:25)
[2018-06-08] MEDS: Enoxaparin Sodium 40 MG/0.4 ML SYRINGE SC SCH (08:26)
[2018-06-08] MEDS: traMADol HCl 50 MG TAB PO PRN (08:26)
[2018-06-08] MEDS ORDERED: predniSONE 20 MG TAB PO SCH (12:00)
--- NOTE | 2018-06-08 12:07 | PRG ---
DATE OF SERVICE: 06/08/2018 Mr. Lua is a pleasant 62-year-old man, who was admitted with an exacerbation of heart failure and COPD. He has been treated appropriately for both and is looking and feeling much better. He is likely nearing time for discharge. He was also treated successfully for atrial fibrillation with RVR and all these problems will be continued to be monitored as an outpatient. Clinically much improved. Job ID: [id number]
--- NOTE | 2018-06-08 12:47 | PRG ---
DATE OF SERVICE: 06/08/2018 SUBJECTIVE: The patient is doing reasonably well compared to yesterday. He had no acute complaints. OBJECTIVE: VITAL SIGNS: His temperature is 98.3, pulse 89, respirations 18, O2 saturation 94% on 3 L, blood pressure 112/66. HEENT: Unremarkable. NECK: No adenopathy or JVD. CHEST: Clear to auscultation without wheezing or rhonchi. CARDIOVASCULAR: Regular without murmur. ABDOMEN: Soft and nontender. EXTREMITIES: Trace edema. ASSESSMENT: 1. Chronic obstructive pulmonary disease with exacerbation. 2. Tobacco abuse. 3. Atrial fibrillation with rapid ventricular response. PLAN: 1. Continue nebs via EzPAP. 2. Continue Zithromax. 3. I agree with oral steroids. 4. Smoking cessation has been advised. 5. From a pulmonary standpoint, he is probably stable for discharge, but I think there is some cardiac issues that will need to be addressed. Job ID: [id number]
[2018-06-08] MEDS: predniSONE 20 MG TAB PO SCH (12:57)
[2018-06-08] MEDS: Azithromycin 250 MG TAB PO SCH (12:57)
[2018-06-08] MEDS: Nicotine 21 MG PATCH TD SCH (17:10)
[2018-06-08] MEDS: rOPINIRole HCl 1 MG TAB PO SCH (21:24)
[2018-06-08] MEDS: Apixaban 5 MG TAB PO SCH (21:25)
[2018-06-08] MEDS: Atorvastatin Calcium 20 MG TAB PO SCH (21:25)
[2018-06-09 05:57] LABS: #Lymphocytes 1.5 thou/uL (1.20-3.40); #Monocytes 0.5 thou/uL (0.11-0.59); #Neutrophils 4.6 thou/uL (1.40-6.50); %Basophils 0.7 % (0.0-1.0); %Eosinophils 0.1 % (0.0-10.0); %Lymphocytes 22.4 % (21.0-51.0); %Neutrophils 68.9 % (42.0-75.0); Hemoglobin 12.5 g/dL (14.0-18.0); Mean Corpuscular Hemoglobin 30.4 pg (27.0-31.0); Mean Corpuscular Volume 95.1 fL (78.0-98.0); Mean Platelet Volume 7.7 fL (7.4-10.4); Platelet Count 147 thou/uL (130-400); RBC Distribution Width 12.6 % (11.5-14.5); Red Blood Cell (RBC) Count 4.12 mill/uL (4.70-6.10); White Blood Cell (WBC) Count 6.7 thou/uL (4.8-10.8)
[2018-06-09 06:09] LABS: Anion Gap 8 mmol/L (10-20); BUN (Urea Nitrogen) 15 mg/dL (8.4-25.7); Calc. Creatinine Clearance 131 mL/min (70-130); Calcium 8.9 mg/dL (7.8-10.44); Carbon Dioxide 37 mmol/L (23-31); Chloride 97 mmol/L (98-107); Estimated GFR-MDRD 84; Glucose 104 mg/dL (80-115); Potassium 4.4 mmol/L (3.5-5.1); Sodium 138 mmol/L (136-145)
--- NOTE | 2018-06-09 06:13 | PDOC.FM ---
- Subjective Subjective: Pt states he got up and walked yesterday. He states that he is feeling better today and his breathing is improving. He denies CP, nausea, or vomiting. - Objective MAR Reviewed: Yes Vital Signs & Weight: Vital Signs (12 hours) Temp Pulse Resp BP Pulse Ox 06/09/18 03:42 94 L 06/09/18 03:41 94 L 06/09/18 03:30 97.6 F 81 14 115/70 94 L 06/08/18 22:58 90 L 06/08/18 20:00 98.2 F 80 18 131/78 97 06/08/18 19:32 83 18 91 L Weight Weight 109.769 kg Most Recent Monitor Data Heart Rate from ECG 84 NIBP 137/98 NIBP BP-Mean 111 Respiration from ECG 18 SpO2 97 I&O: 06/07/18 06/08/18 06/09/18 06:59 06:59 06:59 Intake Total 575 1098.75 600 Output Total 340 1725 800 Balance 235 -626.25 -200 Result Diagrams: 06/09/18 05:33 06/09/18 05:33 Phys Exam - Physical Examination Constitutional: NAD HEENT: moist MMs Neck: no JVD, full ROM Respiratory: wheezing present (Improving) Cardiovascular: RRR, no significant murmur Gastrointestinal: soft, no distention, positive bowel sounds Musculoskeletal: pulses present, edema present Neurological: moves all 4 limbs Psychiatric: A&O x 3 Skin: cap refill <2 seconds Dx/Plan (1) Acute and chronic respiratory failure with hypoxia Code(s): J96.21 - ACUTE AND CHRONIC RESPIRATORY FAILURE WITH HYPOXIA Status: Acute (2) Acute kidney injury Code(s): N17.9 - ACUTE KIDNEY FAILURE, UNSPECIFIED Status: Acute (3) Atrial fibrillation with rapid ventricular response Code(s): I48.91 - UNSPECIFIED ATRIAL FIBRILLATION Status: Acute (4) HFrEF (heart failure with reduced ejection fraction) Code(s): I50.20 - UNSPECIFIED SYSTOLIC (CONGESTIVE) HEART FAILURE Status: Acute (5) Anxiety Code(s): F41.9 - ANXIETY DISORDER, UNSPECIFIED Status: Chronic (6) CKD (chronic kidney disease) Code(s): N18.9 - CHRONIC KIDNEY DISEASE, UNSPECIFIED Status: Chronic (7) COPD (chronic obstructive pulmonary disease) Status: Chronic Qualifiers: COPD type: unspecified COPD Qualified Code(s): J44.9 - Chronic obstructive pulmonary disease, unspecified (8) Restless legs syndrome (RLS) Status: Chronic - Plan Plan: This is a 62 yo male with a pmh of HTN, COPD, Afib, CKD3, anxiety Acute on chronic hypoxic respiratory failure -Improving o2 sats, currently on 3L nc -COPD vs CHF exacerbation, Echo shows EF 50-55%, no diastolic dysfunction -Azithromycin, duonebs, and lasix Afib with RVR -Regular rate at this point -Consult cardiology and appreciate recommendations HFrEF -Echo as above, BNP 25 -Continue carvedilol, aspirin -Continue statin DEANDRE on CKD2, resolved COPD -Used home O2 -Continue duonebs and BID inhaler RLS -Continue ropinirole, gabapentin -B12, folate, A1c wnl Anxiety/depression -Continue escitalopram, trazadone
[2018-06-09] MEDS: Mometasone Furoate 120 PUFF 220 MCG INH SCH (07:23)
[2018-06-09] MEDS: Escitalopram Oxalate 20 mg Tablet PO SCH (08:42)
[2018-06-09] MEDS: guaiFENesin ER 600 MG TAB PO SCH (08:42)
[2018-06-09] MEDS: Lisinopril 10 MG TAB PO SCH (08:43)
[2018-06-09] MEDS: Aspirin 325 MG TAB PO SCH (08:43)
[2018-06-09] MEDS: Gabapentin 400 MG CAP PO SCH (08:43)
[2018-06-09] MEDS: Furosemide 20 MG TAB PO SCH (08:43)
[2018-06-09] MEDS: Carvedilol 6.25 MG TAB PO SCH (08:43)
[2018-06-09] MEDS: Amiodarone 200 MG TAB PO SCH (08:43)
[2018-06-09] MEDS: Apixaban 5 MG TAB PO SCH (09:42)
--- NOTE | 2018-06-09 12:17 | PRG ---
DATE OF SERVICE: 06/09/2018 SUBJECTIVE: Mr. Lua is awake, alert, in no distress. OBJECTIVE: CARDIAC: Heart rhythm, irregular. LUNGS: Clear. His echo report is good. His ejection fraction is 50% to 55%. The left atrium is mildly dilated. There is mild mitral regurgitation present as well as mild tricuspid regurgitation. Otherwise normal. Nearing time for discharge. Job ID: [id number]
[2018-06-09] MEDS: predniSONE 20 MG TAB PO SCH (12:54)
[2018-06-09] MEDS: Azithromycin 250 MG TAB PO SCH (12:54)
[2018-06-09 13:00] VITALS: BP 110/71; TEMP 97.8
--- NOTE | 2018-06-09 13:11 | PRG ---
DATE OF SERVICE: 06/09/2018 SUBJECTIVE: The patient is doing well. No complaints. OBJECTIVE: VITAL SIGNS: Temperature 98, pulse 116, respirations 18, O2 saturation 93% on 3 L, blood pressure 134/86. HEENT: Unremarkable. NECK: No JVD. LUNGS: Clear without wheezing. CARDIAC: S1, S2. Regular. ABDOMEN: Soft. EXTREMITIES: No edema. LABORATORY DATA: White blood cell count 6.7, hematocrit 39.2, and platelet count 147. Sodium 138, BUN 15, creatinine 0.9, glucose 104. ASSESSMENT: Chronic obstructive pulmonary disease with exacerbation. PLAN: The patient is medically stable for discharge from Pulmonary standpoint. No further recommendations. Please call if further assistance is needed. Job ID: [id number]
--- NOTE | 2018-06-09 13:24 | PDOC.EVN ---
Event Note - Event Note Event Note: [facility] sent in from this hospitalization. Spoke with PharmD and they stated his Rx would not be covered from hospital, but he just needs [facility]. Patient will then have medication covered. He will receive 6 tabs free of charge from Pharmacy to allow him time to get medication [facility]. Patient agreeable to plan. Nurses notified.
--- NOTE | 2018-06-10 10:49 | CON ---
DATE OF CONSULTATION: HISTORY: August Lua is a 62-year-old white male with history of COPD and nonischemic cardiomyopathy, who I initially evaluated in July 2016 for chest discomfort. At 4:30 am on the day of admission, he was getting ready to go to work and had onset of central chest pressure associated with shortness of breath and some diaphoresis. He did not have any nausea or vomiting. He drove to work and continued to have the same feeling. He denied any palpitations or feeling of a rapid heartbeat. He ultimately came to the emergency room and was found to be in atrial fibrillation with fast ventricular response with the heart rate of 183 per minute on initial EKG. He was placed on Cardizem drip and ultimately converted to sinus rhythm. Troponin I went up to 0.079. Creatinine was 1.47. Echo revealed moderate left ventricular systolic dysfunction with ejection fraction of 35% to 40%, moderate mitral regurgitation, mild tricuspid regurgitation. He also underwent cardiac catheterization during that admission. There was moderate left ventricular dysfunction with ejection fraction of 35% to 40%. Coronary arteries were normal. He was placed on Entresto 24/26 b.i.d., carvedilol 3.125 b.i.d., furosemide 20 daily, and Eliquis 5 mg b.i.d. He was seen one month later in the office and did not have any episodes of chest discomfort or shortness of breath. Blood pressure was 168/98, and he had been ran out of his medications for 4 days. He could not pay for the Entresto and so that was changed to lisinopril. Furosemide and carvedilol were continued. He also could not afford the Eliquis or blood test with Coumadin and so he was just placed on aspirin 325 at that time. He was readmitted in September 2016. 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 He started to have chest discomfort, came to the emergency room, was in atrial fibrillation with fast ventricular response with rate of 163 per minute. He was given intravenous Cardizem and converted. He was placed on a tapered amiodarone dose since that had been his second admission in 2 months for atrial fibrillation. It was recommended that he come in several weeks after that for his 3-month echo check after being on medications. However, I have not seen him since that time. He apparently has not been anticoagulated and he has totally uncertain about the amiodarone. He gets his care at the [facility]. He now presents with chest discomfort, shortness of breath, and found to be in atrial fibrillation. He was treated with intravenous Cardizem and again is converted to sinus rhythm. PAST MEDICAL HISTORY: Nonischemic cardiomyopathy, last ejection fraction of 35% to 40%. COPD, hypertension, no history of diabetes or hypercholesterolemia. MEDICATIONS: 1. Carvedilol 6.25 b.i.d. 2. Albuterol 1-2 puffs p.r.n. 3. Aspirin 325 daily. 4. Furosemide 20 mg q.a.m. 5. Gabapentin 400 mg b.i.d. 6. DuoNebs t.i.d. 7. Lisinopril 10 mg daily. 8. Asmanex 2 puffs b.i.d. 9. Naproxen 220 t.i.d. p.r.n. 10. Trazodone 100 mg at bedtime. ALLERGIES: NONE. PAST SURGICAL HISTORY: Left inguinal herniorrhaphy. SOCIAL HISTORY: He smokes one pack per day. He does not drink alcohol. FAMILY HISTORY: Brother has coronary artery disease. REVIEW OF SYSTEMS: A 10-point review of systems unremarkable. PHYSICAL EXAMINATION: VITAL SIGNS: Blood pressure 129/80, pulse of 86, normal sinus rhythm. HEENT: PERRL. NECK: Supple. CHEST: Clear. CARDIAC: S1 and S2 normal without any S3, S4, or murmurs. ABDOMEN: Normal bowel sounds without tenderness or organomegaly. EXTREMITIES: Revealed no clubbing, cyanosis, or edema. NEUROLOGIC: Grossly intact. SKIN: Warm and dry. LABORATORY DATA: EKG revealed atrial fibrillation with fast ventricular response with the rate of 147 per minute. Hemoglobin 13.4, hematocrit 43.7, white count 7400. Sodium 135, potassium 3.9, chloride 95, carbon dioxide 34, BUN 17, creatinine 1.30. Cholesterol 124, triglycerides 73, HDL 29, LDL 80. Troponin I is up to 0.078. IMPRESSION: 1. Paroxysmal atrial fibrillation, now with his 3rd episode. On his last episode, he was placed on amiodarone, however, I am not certain why he is on that at this time. 2. Difficulty in getting anticoagulation due to the patient being unable to afford oral anticoagulants as well as not able to afford blood test for INR monitoring. 3. Noncompliance with amiodarone, it is uncertain why he is no longer on this. 4. Nonischemic cardiomyopathy with ejection fraction of 35% to 40%. 5. Normal coronary arteries. 6. Probable hypertension. 7. The patient continues to smoke. 8. Chronic obstructive pulmonary disease. 9. Positive family history. RECOMMENDATIONS: Again, Mr. Lua will be loaded with p.o. amiodarone. With this is 3rd admission for atrial fibrillation with fast ventricular response, he should be on chronic suppressive therapy. He also should be on chronic anticoagulation, but he cannot afford the newer agents and states he cannot afford to get his INRs checked. Echocardiogram will be performed to reassess left ventricular function. He certainly may require ICD placement if his ventricular function has worsened from 35% to 40%. He will be anticoagulated with Lovenox 1 mg/kg b.i.d., in case ICD placement is needed. Job ID: [id number]
--- NOTE | 2018-06-10 11:07 | DIS ---
DATE OF ADMISSION: 06/06/2018 DATE OF DISCHARGE: 06/09/2018 ADMITTING ATTENDING: Gonzalo Del Rosario MD DISCHARGING ATTENDING: Saeed Goff MD RESIDENT: Jerrell Little DO CONSULTS: 1. Cardiology, Dr. Ashwin Ventura. 2. Pulmonology, Dr. Joshua Mann. PROCEDURES: 1. Echocardiogram showing EF of 50% to 55%, left atrium mildly dilated. 2. Chest x-ray showed stable increased markings in the bases of the right hemidiaphragm, elevated. No new process. 3. Chest x-ray, portable, no new evidence of cardiopulmonary disease. PRIMARY DIAGNOSIS: Acute on chronic hypoxic respiratory failure likely secondary to chronic obstructive pulmonary disease, atrial fibrillation with RVR. SECONDARY DIAGNOSES: The patient carries a diagnosis of heart failure with reduced ejection fraction. However, during his hospital stay, the patient had a normal echocardiogram, acute kidney injury on chronic kidney disease 3, chronic obstructive pulmonary disease on baseline of 2 L nasal cannula, restless legs syndrome, anxiety/depression. DISCHARGE MEDICATIONS: 1. Eliquis 5 mg p.o. b.i.d. 2. Amiodarone 400 mg p.o. b.i.d. 3. Atorvastatin 20 mg p.o. at bedtime. 4. Azithromycin 250 mg p.o. daily for 2 days. 5. Prednisone 40 mg p.o. daily for 3 days. 6. Aspirin 325 mg p.o. daily. 7. Carvedilol 6.25 mg p.o. b.i.d. 8. Escitalopram 20 mg p.o. daily. 9. Furosemide 20 mg p.o. daily. 10. Gabapentin 400 mg p.o. b.i.d. 11. Guaifenesin 600 mg p.o. q.12 hours. 12. DuoNeb t.i.d. p.r.n. wheezing. 13. Lisinopril 10 mg p.o. daily. 14. Asmanex Twisthaler one puff q.p.m. and one puff b.i.d. 15. Naproxen 220 mg p.o. t.i.d. for headaches. 16. Ropinirole 1 mg p.o. at bedtime. 17. Tiotropium/olodaterol one inhalation q.a.m. 18. Trazodone 100 mg p.o. at bedtime. DISCONTINUED MEDICATIONS: None. BRIEF HISTORY OF PRESENT ILLNESS/HOSPITAL COURSE: This is a 62-year-old male with past medical history as above, who presented with weakness and shortness of breath. He said he felt short of breath and heart beating fast and was lightheaded. Had multiple episodes of vomiting and passed out. The patient was admitted to the hospital, was found to be in atrial fibrillation with RVR as well as COPD exacerbation. There was concern for worsening CHF. However, echo as above showed normal cardiac output. The patient required oxygen up to 4 L during his stay. In addition, he required BiPAP at the beginning and was weaned off that. It is likely due to that his requirement for BiPAP is related to his anxiety. In addition, the patient was in atrial fibrillation, was converted to a rate controlled sinus rhythm with amiodarone. The patient was put on Eliquis for his atrial fibrillation. The patient reports that he had previously been on atrial fibrillation but a doctor took him off it. DISPOSITION: Stable. DISCHARGE INSTRUCTIONS: 1. Location: Home. 2. Diet: Heart healthy. 3. Activity: Cardiopulmonary limitations. 4. Followup: [facility]. The patient was discharged on Eliquis and will need [facility] this medication as the hospital has not covered it. The patient received a temporary dose of 6 pills. Please see event note on the day of discharge for further details. Job ID: [id number]
== END 2018-06-09 15:24 | disposition home or self-care (01) | DRG 189 ==
LOC: ERS 13:57 → ERHOLD 17:04 → IMCU/EMU 19:49 → 2NO 06-07 18:12
PROVIDERS: ADMIT Emergency Medicine; ATTEND Emergency Medicine
PROC: 5A09457 Assistance with Respiratory Ventilation, 24-96 Consecutive Hours, Continuous Positive Airway Pressure (ICD-10-PCS; principal; 2018-06-06)
DX: J96.21 Acute and chronic respiratory failure with hypoxia (principal); J44.1 Chronic obstructive pulmonary disease with (acute) exacerbation; N17.9 Acute kidney failure, unspecified; I50.20 Unspecified systolic (congestive) heart failure; I42.8 Other cardiomyopathies; I13.0 Hypertensive heart and chronic kidney disease with heart failure and stage 1 through stage 4 chronic kidney disease, or unspecified chronic kidney disease; I48.91 Unspecified atrial fibrillation; N18.3 Chronic kidney disease, stage 3 (moderate); G25.81 Restless legs syndrome; F41.9 Anxiety disorder, unspecified; F32.9 Major depressive disorder, single episode, unspecified; I08.1 Rheumatic disorders of both mitral and tricuspid valves; F17.210 Nicotine dependence, cigarettes, uncomplicated; Z98.890 Other specified postprocedural states; Z91.14 Patient's other noncompliance with medication regimen
CPT/HCPCS: 36415; 71045; 80048; 80053; 80061; 82553; 82607; 82746; 83036; 83735; 83880; 84484; 85025; 93005; 93306; 93798; 94640; 94660; 96365; 96366; 96375; J1650; J1940; J3490; J7512; J7620

== ENCOUNTER 2018-06-24 14:38 | Outpatient (CLI) | payer OTHER ==
--- NOTE | 2018-06-24 15:00 | RAD ---
Exam: Chest 2 views HISTORY:Disability exam Comparison: 10/13/2013 FINDINGS: Lungs: Elevated right hemidiaphragm with adjacent linear densities. Bilateral interstitial prominence . Cardiac silhouette:Enlarged Pulmonary vessels: Engorged Pleural Spaces: Clear Pneumothorax: None Osseous abnormalities: None of acuity. IMPRESSION: Patchy right basilar density with elevation right hemidiaphragm. This may relate to atele ctasis or pneumonitis. Bilateral interstitial prominence with evidence of cardiac enlargement and vascular congestion. Corre late for evidence of CHF. Recommend follow-up to resolution.
== END 2018-06-24 14:39 | disposition home or self-care (01) ==
LOC: BICRAD 14:38
PROVIDERS: ATTEND Internal Medicine
DX: Z02.71 Encounter for disability determination (principal); J98.4 Other disorders of lung; Q79.1 Other congenital malformations of diaphragm; I51.7 Cardiomegaly; R09.89 Other specified symptoms and signs involving the circulatory and respiratory systems
CPT/HCPCS: 71046

== ENCOUNTER 2018-07-03 14:04 | Emergency (ER) | payer BC, OTHER ==
[2018-07-03 14:38] LABS: #Basophils 0.1 thou/uL (0.0-0.2); #Eosinphils 0.1 thou/uL (0.0-0.7); #Lymphocytes 1.9 thou/uL (1.20-3.40); #Monocytes 0.7 thou/uL (0.11-0.59); #Neutrophils 2.9 thou/uL (1.40-6.50); %Eosinophils 2.4 % (0.0-10.0); %Lymphocytes 33.2 % (21.0-51.0); %Monocytes 11.9 % (0.0-10.0); %Neutrophils 51.4 % (42.0-75.0); Hemoglobin 13.7 g/dL (14.0-18.0); Mean Corpuscular Hemoglobin 31.2 pg (27.0-31.0); Mean Corpuscular Volume 94.3 fL (78.0-98.0); Mean Platelet Volume 8.3 fL (7.4-10.4); Platelet Count 158 thou/uL (130-400); Red Blood Cell (RBC) Count 4.41 mill/uL (4.70-6.10); White Blood Cell (WBC) Count 5.6 thou/uL (4.8-10.8)
[2018-07-03 15:04] LABS: ALT (SGPT) 16 U/L (8-55); AST (SGOT) 17 U/L (5-34); Albumin 4.2 g/dL (3.4-4.8); Alkaline Phosphatase 81 U/L (40-150); Anion Gap 12 mmol/L (10-20); BUN (Urea Nitrogen) 15 mg/dL (8.4-25.7); Bilirubin, Total 0.4 mg/dL (0.2-1.2); Calc. Creatinine Clearance 0 mL/min (70-130); Calcium 9.8 mg/dL (7.8-10.44); Carbon Dioxide 33 mmol/L (23-31); Chloride 100 mmol/L (98-107); Estimated GFR-MDRD 60; Globulin 2.9 g/dL (2.4-3.5); Glucose 87 mg/dL (80-115); Potassium 4.1 mmol/L (3.5-5.1); Protein, Total 7.1 g/dL (5.8-8.1); Sodium 141 mmol/L (136-145)
--- NOTE | 2018-07-03 17:33 | CT ---
Head CT without contrast 07/03/2018: HISTORY: Arm numbness, finger tingling TECHNIQUE: Axial CT imaging at 5 mm intervals from vertex through skull base without contrast FINDINGS: The visualized paranasal sinuses and mastoid air cells are well aerated. There is no displa michelle calvarial fracture. No intracranial hemorrhage, midline shift, mass effect, or ventricular enlargement. IMPRESSION: No acute findings.
[2018-07-03] MEDS ORDERED: Lorazepam 2 MG/ML VIAL ONE (17:35)
--- NOTE | 2018-07-03 17:48 | RAD ---
Frontal radiograph chest: 07/03/2018 COMPARISON: 06/06/2018 HISTORY: Shortness of breath, tingling of the fingers, hand numbness FINDINGS: Stable prominence of the cardiac silhouette and elevation of the right hemidiaphragm. Mild increased linear interstitial density noted, stable. No pneumothorax or pleural fluid. No focal consolidation or alveolar edema. IMPRESSION: Chronic findings as described above. No focal consolidation or alveolar edema.
[2018-07-03 18:16] LABS: Bilirubin Negative (Negative); Blood, Urine Negative (Negative); Clarity CLEAR (Clear); Glucose, Urine (Dipstick) Negative (Negative); Leukocyte Negative (Negative); Nitrite Negative (Negative); Protein, Urine (Dipstick) Negative (Neg-Trace); Specific Gravity, Urine 1.022 (1.002-1.036)
--- NOTE | 2018-07-06 15:11 | EKG ---
Test Reason : Blood Pressure : / mmHG Vent. Rate : 066 BPM Atrial Rate : 066 BPM P-R Int : 142 ms QRS Dur : 098 ms QT Int : 434 ms P-R-T Axes : 034 -54 026 degrees QTc Int : 454 ms Normal sinus rhythm Left atrial enlargement Nonspecific T wave abnormality Abnormal ECG Confirmed by CASTILLO STEPHEN, ADRIANNA Frankel ([id number]), commercial production editor OCTAVIA MILLS ([id number]) on 07/06/2018 3:11:21 PM Referred By: Confirmed By:ADRIANNA CHONG MD
== END 2018-07-03 19:21 | disposition home or self-care (01) ==
LOC: ERS 14:04
DX: R20.2 Paresthesia of skin (principal); F41.9 Anxiety disorder, unspecified; J44.9 Chronic obstructive pulmonary disease, unspecified; I48.91 Unspecified atrial fibrillation; I50.9 Heart failure, unspecified; F17.210 Nicotine dependence, cigarettes, uncomplicated; Z79.899 Other long term (current) drug therapy; Z79.01 Long term (current) use of anticoagulants
CPT/HCPCS: 36415; 70450; 71045; 80053; 81003; 82550; 83880; 84484; 85025; 93005; 96372; J2060

== ENCOUNTER 2019-08-13 13:45 | Emergency (ER) | payer OTHER ==
--- NOTE | 2019-08-13 14:14 | RAD ---
EXAM: Single view of the chest HISTORY: Atrial fibrillation COMPARISON: 07/03/2018 FINDINGS: Single view of the chest shows a normal sized cardiomediastinal silhouette. There is stabl e elevation the right hemidiaphragm There is no evidence of consolidation, mass, or pleural effusion. The bones are unremarkable. IMPRESSION: No evidence of acute cardiopulmonary disease
[2019-08-13 14:42] LABS: #Basophils 0.1 thou/uL (0.0-0.2); #Eosinphils 0.2 thou/uL (0.0-0.7); #Lymphocytes 1.9 thou/uL (1.20-3.40); #Monocytes 0.9 thou/uL (0.11-0.59); #Neutrophils 5.1 thou/uL (1.40-6.50); %Basophils 0.8 % (0.0-1.0); %Eosinophils 2.2 % (0.0-10.0); %Lymphocytes 23.5 % (21.0-51.0); %Monocytes 11.4 % (0.0-10.0); Hemoglobin 13.4 g/dL (14.0-18.0); Mean Corpuscular HGB CONC 32.1 g/dL (32.0-36.0); Mean Corpuscular Hemoglobin 30.3 pg (27.0-31.0); Mean Corpuscular Volume 94.4 fL (78.0-98.0); Mean Platelet Volume 8.3 fL (7.4-10.4); Platelet Count 167 thou/uL (130-400); RBC Distribution Width 12.2 % (11.5-14.5); Red Blood Cell (RBC) Count 4.43 mill/uL (4.70-6.10); White Blood Cell (WBC) Count 8.1 thou/uL (4.8-10.8)
[2019-08-13 15:08] LABS: ALT (SGPT) 14 U/L (8-55); AST (SGOT) 18 U/L (5-34); Albumin 4.1 g/dL (3.4-4.8); Alkaline Phosphatase 87 U/L (40-110); Anion Gap 11 mmol/L (10-20); BUN (Urea Nitrogen) 15 mg/dL (8.4-25.7); Bilirubin, Total 0.3 mg/dL (0.2-1.2); Calc. Creatinine Clearance 0 mL/min (70-130); Calcium 9.5 mg/dL (7.8-10.44); Carbon Dioxide 31 mmol/L (23-31); Chloride 102 mmol/L (98-107); Estimated GFR-MDRD 64; Globulin 3.1 g/dL (2.4-3.5); Glucose 83 mg/dL (80-115); Lipase 10 U/L (8-78); Potassium 4.1 mmol/L (3.5-5.1); Protein, Total 7.2 g/dL (5.8-8.1); Sodium 140 mmol/L (136-145)
== END 2019-08-13 18:52 | disposition home or self-care (01) ==
LOC: ERS 13:45
DX: I48.20 Chronic atrial fibrillation, unspecified (principal); I50.9 Heart failure, unspecified; J44.9 Chronic obstructive pulmonary disease, unspecified; F17.210 Nicotine dependence, cigarettes, uncomplicated; Z79.891 Long term (current) use of opiate analgesic; Z79.899 Other long term (current) drug therapy
CPT/HCPCS: 36415; 71045; 80053; 83690; 83880; 84484; 85025; 93005; 94760

== ENCOUNTER 2020-03-06 08:40 | Inpatient (IN) | payer OTHER ==
[2020-03-06] MEDS ORDERED: Diltiazem 125 MG/25 ML ONE (09:14)
[2020-03-06] MEDS ORDERED: Magnesium 2 GM/50 ML BAG (IN WATER) ONE (09:25)
[2020-03-06] MEDS ORDERED: Digoxin 0.5 MG/2 ML AMP ONE (09:35)
[2020-03-06] MEDS ORDERED: Dexamethasone 10 MG/ML VIAL ONE (09:35)
[2020-03-06 09:49] LABS: #Monocytes 0.6 thou/uL (0.11-0.59); #Neutrophils 3.4 thou/uL (1.40-6.50); %Basophils 0.3 % (0.0-1.0); %Eosinophils 0.3 % (0.0-10.0); %Lymphocytes 19.3 % (21.0-51.0); %Monocytes 12.2 % (0.0-10.0); Hemoglobin 11.7 g/dL (14.0-18.0); Mean Corpuscular HGB CONC 32.8 g/dL (32.0-36.0); Mean Corpuscular Hemoglobin 30.9 pg (27.0-31.0); Mean Platelet Volume 7.9 fL (7.4-10.4); Platelet Count 120 thou/uL (130-400); RBC Distribution Width 12.1 % (11.5-14.5); Red Blood Cell (RBC) Count 3.78 mill/uL (4.70-6.10)
[2020-03-06 10:11] LABS: ALT (SGPT) 18 U/L (8-55); AST (SGOT) 26 U/L (5-34); Alkaline Phosphatase 61 U/L (40-110); Anion Gap 15 mmol/L (10-20); BUN (Urea Nitrogen) 10 mg/dL (8.4-25.7); Bilirubin, Total 0.3 mg/dL (0.2-1.2); CK (CPK) 131 U/L (30-200); Calc. Creatinine Clearance 0 mL/min (70-130); Calcium 8.1 mg/dL (7.8-10.44); Carbon Dioxide 26 mmol/L (23-31); Chloride 96 mmol/L (98-107); Globulin 3.2 g/dL (2.4-3.5); Glucose 96 mg/dL (80-115); Lipase 12 U/L (8-78); Potassium 3.9 mmol/L (3.5-5.1); Protein, Total 7.2 g/dL (5.8-8.1); Sodium 133 mmol/L (136-145)
--- NOTE | 2020-03-06 10:42 | RAD ---
EXAM: CHEST ONE VIEW HISTORY: Fever, diarrhea, shortness of breath for 2 days. COMPARISON: 08/13/2011 FINDINGS: Patient device overlies the right upper lung zone. Persistent elevation right hemidiaphragm is noted with atelectasis at the right lung base. There is increased interstitial densities seen within upper lung zones bilaterally likely due to mild chronic lung changes. Findings at each lung apex is l ikely related to bullous emphysematous changes seen on prior CTA chest on 12/04/2017. Patchy parenchymal density in the left midlung zone the prior exam has resolved. No new area of consolidatio n or pleural fluid is seen. Cardiac silhouette is stable in size. No other interval change. IMPRESSION: Stable chronic lung changes without evidence of an acute cardiopulmonary process.
[2020-03-06 11:06] LABS: SARS-CoV-2 NAA Rapid Test DETECTED (NotDetected)
[2020-03-06] MEDS ORDERED: cefTRIAXone\\ROCEPHIN 2 GM VIAL ONE (11:17)
[2020-03-06] MEDS ORDERED: Azithromycin 500 MG VIAL ONE (11:17)
[2020-03-06] MEDS ORDERED: Albuterol 200 PUFF (6.7GM INHALER) ONE (13:01)
[2020-03-06 13:17] LABS: Bilirubin Negative (Negative); Blood, Urine Negative (Negative); Clarity Clear (Clear); Glucose, Urine (Dipstick) Normal (Negative); Ketone, Urine Negative (Negative); Leukocyte Negative Leu/uL (Negative); Nitrite Negative (Negative); Protein, Urine (Dipstick) Negative (Neg-Trace); Specific Gravity, Urine 1.006 (1.002-1.036); Urobilinogen Normal mg/dL (Less than 2); pH, Urine 5.5 (5.0-9.0)
--- NOTE | 2020-03-06 13:24 | PDOC.HHP ---
Hospitalist HPI - History of Present Illness Afib, Covid History of Present Illness: Patient c/o chest pain, afib with RVR that started 1 day ago. Patient has history of afib, CHF, HTN, COPD, is managed by a watch adjuster at the OR. Patient states chest pain was midsternal, did not radiate and nothing made it better or worse. Patient was cardioverted in ER but dyspnea did not resolve. Patient was Covid 19 +, 100% on 2L oxygen via [place]. ED Course: Patient present to ER for feelings of chest pain, shortness of breath and fatigue that started 1 day ago. Patient has history of afib, CHF, HTN, COPD, is managed by a watch adjuster at the OR. Hospitalist ROS - Review of Systems Constitutional: reports: fever, chills, weakness, malaise Eyes: denies: pain, vision change, conjunctivae inflammation ENT: denies: ear pain, ear discharge, nose pain Respiratory: reports: shortness of breath, SOB with excertion. denies: cough, dry Cardiovascular: reports: chest pain, palpitations Gastrointestinal: denies: nausea, vomiting, abdominal pain, diarrhea, constipation Musculoskeletal: denies: neck pain, shoulder pain, arm pain Skin: denies: rash, lesions Neurological: denies: weakness, numbness, incoordination, change in speech All other systems reviewed; all pertinent +/- noted in HPI/Subj - Medication Medications: carvedilol TABLET : Strength - 3.125 mg : ORAL Patient Dose: 12.5 mg Oral 2 times a day. Lasix oral TABLET : Strength - 20 mg : ORAL Patient Dose: 20 mg Oral once a day. lisinopril TABLET : Strength - 10 mg : ORAL Patient Dose: 20 mg Oral once a day. traZODone TABLET : Strength - 100 mg : ORAL Patient Dose: 100 mg Oral once a day (at bedtime). Combivent AEROSOL WITH ADAPTER (GRAM) : Strength - 18 mcg-103 mcg (90 mcg)/actuation : INHALATION Patient Dose: 2 jose Inhaler As Needed. escitalopram oxalate TABLET : Strength - 20 mg : ORAL Patient Dose: 20 mg Oral once a day. rOPINIRole TABLET : Strength - 0.5 mg : ORAL Patient Dose: 0.5 mg Oral once a day. gabapentin CAPSULE : Strength - 400 mg : ORAL Patient Dose: 600 mg Oral once a day. amiodarone oral TABLET : Strength - 200 mg : ORAL Patient Dose: 200 mg Oral. Eliquis TABLET : Strength - 5 mg : ORAL Patient Dose: 5 mg Oral 2 times a day. Hospitalist History - Past Medical History Source: patient Cardiac: reports: AFIB, CHF, HTN Pulmonary: reports: COPD CLINICAL PHLEBOTOMIST: reports: no pertinent history, Other (RLS, Insomnia) Gastrointestinal: reports: no pertinent history Heme/Onc: reports: no pertinent history Hepatobiliary: reports: no pertinent history Psych: reports: Depression Musculoskeletal: reports: no pertinent history Rheumatologic: reports: no pertinent history Infectious Disease: reports: no pertinent history ENT: reports: no pertinent history Renal/: reports: no pertinent history Endocrine: reports: no pertinent history Dermatology: reports: no pertinent history - Past Surgical History Past Surgical History: reports: Hernia Repair - Family History Family History: reports: cardiac disorder (brother) - Social History Smoking Status: Former smoker (smoked for 40 years, 1 ppd, quit 1 year ago.) Alcohol: reports: None Drugs: reports: none Living Situation: Alone Domestic Violence: Negative - Exam General Appearance: NAD, awake alert Eye: PERRL, anicteric sclera ENT: normocephalic atraumatic, no oropharyngeal lesions, moist mucosa Neck: supple, symmetric, no JVD, no thyromegaly, no lymphadenopathy, no carotid bruit Heart: RRR, no murmur, no gallops, no rubs, normal peripheral pulses Respiratory: CTAB, no wheezes, no rales, no ronchi, normal chest expansion, no tachypnea, normal percussion Gastrointestinal: soft, non-tender, non-distended, normal bowel sounds, no palpable masses, no hepatomegaly, no splenomegaly, no bruit Skin: normal turgor, no lesions, no rashes Neurological: cranial nerve grossly intact, normal sensation to touch, no weakness, no focal deficits, no new deficit Musculoskeletal: normal tone, normal strength, no muscle wasting Psychiatric: normal affect, normal behavior, A&O x 3 Hospitalist Results - Labs Result Diagrams: 03/06/20 09:34 03/06/20 09:34 Lab results: WBC 5.0 thou/uL (4.8-10.8) 03/06/20 09:34 Hgb 11.7 g/dL (14.0-18.0) L 03/06/20 09:34 Hct 35.6 % (42.0-52.0) L 03/06/20 09:34 MCV 94.0 fL (78.0-98.0) 03/06/20 09:34 Plt Count 120 thou/uL (130-400) L 03/06/20 09:34 Neutrophils % 68.0 % (42.0-75.0) 03/06/20 09:34 Sodium 133 mmol/L (136-145) L 03/06/20 09:34 Potassium 3.9 mmol/L (3.5-5.1) 03/06/20 09:34 Chloride 96 mmol/L (98-107) L 03/06/20 09:34 Carbon Dioxide 26 mmol/L (23-31) 03/06/20 09:34 BUN 10 mg/dL (8.4-25.7) 03/06/20 09:34 Creatinine 1.24 mg/dL (0.7-1.3) 03/06/20 09:34 Glucose 96 mg/dL (80-115) 03/06/20 09:34 Lactic Acid 0.8 mmol/L (0.5-2.2) 03/06/20 09:34 Calcium 8.1 mg/dL (7.8-10.44) 03/06/20 09:34 Total Bilirubin 0.3 mg/dL (0.2-1.2) 03/06/20 09:34 AST 26 U/L (5-34) 03/06/20 09:34 ALT 18 U/L (8-55) 03/06/20 09:34 Alkaline Phosphatase 61 U/L (40-110) 03/06/20 09:34 Creatine Kinase 131 U/L (30-200) 03/06/20 09:34 Troponin I Less than 0.010 ng/mL (< 0.028) 03/06/20 09:34 B-Natriuretic Peptide 63.6 pg/mL (0-100) 03/06/20 09:34 Serum Total Protein 7.2 g/dL (5.8-8.1) 03/06/20 09:34 Albumin 4.0 g/dL (3.4-4.8) 03/06/20 09:34 Lipase 12 U/L (8-78) 03/06/20 09:34 Hospitalist H&P A/P - Problem (1) Atrial fibrillation with rapid ventricular response Code(s): I48.91 - UNSPECIFIED ATRIAL FIBRILLATION Status: Acute (2) COVID-19 Code(s): U07.1 - COVID-19 Status: Acute (3) Hypertension Code(s): I10 - ESSENTIAL (PRIMARY) HYPERTENSION Status: Chronic Qualifiers: Hypertension type: essential hypertension Qualified Code(s): I10 - Essential (primary) hypertension (4) COPD (chronic obstructive pulmonary disease) Status: Chronic Qualifiers: COPD type: COPD with acute exacerbation Qualified Code(s): J44.1 - Chronic obstructive pulmonary disease with (acute) exacerbation (5) Insomnia Code(s): G47.00 - INSOMNIA, UNSPECIFIED Status: Chronic Qualifiers: Insomnia type: primary Qualified Code(s): F51.01 - Primary insomnia (6) Restless legs syndrome (RLS) Status: Chronic (7) Anxiety Code(s): F41.9 - ANXIETY DISORDER, UNSPECIFIED Status: Chronic - Plan Plan: Afib with RVR: History of afib. Rate controlled. Consult Cardiology. Draw serial troponins. Continue current home medications of Amiodarone and Eliquis. COVID-19: Administer Decadron, Vitamins, bronchodilators and PPI. Draw CRP, D-dimer, Ferritin. Patient currently on Eliquis, so no additional DVT prophylaxis Hypertension: Continue current home medications of Carvedilol,. COPD: Continue current home medications of Combivent. Insomnia: Continue current home medications of Trazodone. Restless Leg Syndrome: Continue current home medications of Ropinirole. Anxiety: Continue current home medications of Escitalopram.
[2020-03-06] MEDS ORDERED: Albuterol Sulfate 2.5 mg/3 ml Neb NEB PRN (14:15)
--- NOTE | 2020-03-06 14:22 | PDOC.EVN ---
Event Note - Event Note Event Note: Case reviewed. Patient presented with Derrick mackey with RVR. Has a known history of atrial fibrillation and is already on amiodarone and Eliquis. Blood pressure did not tolerate diltiazem drip. He was subsequently cardioverted successfully. Since then he is maintained normal blood pressure. We will continue with his amiodarone, Eliquis. He will consult cardiology. His current medical regimen did not prevent the RVR. Is also possible that this was in relation to his acute Covid infection. Telemetry. Serial cardiac isoenzymes. Patient was also found to be Covid positive. He is currently satting 100% on room air. We will give him vitamin supplementations and zinc. Continue with PPI and anticoagulation. Does not qualify for antiviral therapy or steroids.
[2020-03-06 15:28] LABS: Troponin I 0.012 ng/mL (< 0.028)
[2020-03-06] MEDS ORDERED: Diltiazem 125 MG in Sodium Chloride 0.9% 100 ML IVPB SCH (15:45)
[2020-03-06 19:05] LABS: Troponin I Less than 0.010 ng/mL (< 0.028)
[2020-03-06 19:42] VITALS: BMI 38.1
[2020-03-06] MEDS ORDERED: Albuterol 200 PUFF (6.7GM INHALER) INH PRN (20:15)
[2020-03-06 23:10] LABS: Troponin I Less than 0.010 ng/mL (< 0.028)
[2020-03-07] MEDS: Ascorbic Acid 500 mg Chewable Tablet PO SCH (08:27)
[2020-03-07] MEDS: Cholecalciferol 1,000 UNITS (25 MCG) TAB PO SCH (08:27)
[2020-03-07] MEDS: Zinc Sulfate 220 MG CAP PO SCH (08:28)
[2020-03-07] MEDS ORDERED: Calcium Carbonate 500 MG ChewTAB PO PRN (09:22)
[2020-03-07] MEDS ORDERED: Senokot S 8.6-50 MG TAB PO PRN (09:22)
[2020-03-07] MEDS ORDERED: Amiodarone 200 MG TAB PO SCH ×2 (09:45→21:00)
[2020-03-07] MEDS ORDERED: Apixaban 5 MG TAB PO SCH (09:45)
[2020-03-07] MEDS ORDERED: Carvedilol 3.125 MG TAB PO SCH (09:45)
[2020-03-07] MEDS ORDERED: Albuterol 200 PUFF (6.7GM INHALER) INH PRN (10:14)
[2020-03-07 10:24] LABS: #Monocytes 0.5 thou/uL (0.11-0.59); #Neutrophils 2.3 thou/uL (1.40-6.50); %Basophils 0.2 % (0.0-1.0); %Lymphocytes 26.3 % (21.0-51.0); %Monocytes 12.3 % (0.0-10.0); %Neutrophils 61.2 % (42.0-75.0); Hemoglobin 12.3 g/dL (14.0-18.0); Mean Corpuscular HGB CONC 33.6 g/dL (32.0-36.0); Mean Corpuscular Hemoglobin 31.3 pg (27.0-31.0); Mean Corpuscular Volume 93.3 fL (78.0-98.0); Mean Platelet Volume 8.1 fL (7.4-10.4); Platelet Count 138 thou/uL (130-400); RBC Distribution Width 12.2 % (11.5-14.5); Red Blood Cell (RBC) Count 3.92 mill/uL (4.70-6.10); White Blood Cell (WBC) Count 3.8 thou/uL (4.8-10.8)
[2020-03-07 10:43] LABS: ALT (SGPT) 25 U/L (8-55); AST (SGOT) 35 U/L (5-34); Albumin 3.7 g/dL (3.4-4.8); Alkaline Phosphatase 54 U/L (40-110); Anion Gap 12 mmol/L (10-20); BUN (Urea Nitrogen) 14 mg/dL (8.4-25.7); Bilirubin, Total 0.2 mg/dL (0.2-1.2); Calc. Creatinine Clearance 136 mL/min (70-130); Calcium 8.2 mg/dL (7.8-10.44); Carbon Dioxide 29 mmol/L (23-31); Chloride 102 mmol/L (98-107); Glucose 113 mg/dL (80-115); Potassium 4.1 mmol/L (3.5-5.1); Protein, Total 6.7 g/dL (5.8-8.1); Sodium 139 mmol/L (136-145)
[2020-03-07] MEDS: Albuterol 200 PUFF (6.7GM INHALER) INH SCH ×4 (12:13→20:19)
[2020-03-07] MEDS ORDERED: Sodium Chloride 0.65% Nasal 44 ML BOT EA NARE PRN (13:05)
[2020-03-07] MEDS: Fluticasone Propionate Nasal Spray 16 gm Bottle NASAL SCH (16:11)
[2020-03-07] MEDS: Carvedilol 3.125 MG TAB PO SCH (18:39)
[2020-03-07] MEDS: Mometasone 200 MCG/Formoterol 5 MCG 120 PUFF INHALER INH SCH (18:39)
[2020-03-07] MEDS ORDERED: Furosemide 20 MG/2 ML VIAL SLOW IVP SCH (18:45)
[2020-03-07] MEDS ORDERED: Potassium Chloride 20 MEQ TAB PO SCH (18:45)
[2020-03-07] MEDS ORDERED: Cyclobenzaprine 10 MG TAB PO PRN (19:30)
--- NOTE | 2020-03-07 19:37 | CON ---
DATE OF CONSULTATION: 03/07/2020 REASON FOR CONSULTATION: Shortness of breath, paroxysmal atrial fibrillation. PRIMARY TRACK GRINDER: Dr. Ashwin Ventura. HISTORY OF PRESENT ILLNESS: Mr. August Lua is a 64-year-old gentleman with history of paroxysmal atrial fibrillation. He also has a history of congestive heart failure. Initially, it was systolic heart failure, but the most recent ejection fraction is within the normal range and thought to be diastolic heart failure. He is admit to the hospital with progressive shortness of breath with minimal activity, was found to be COVID positive. The patient also carries a diagnosis of paroxysmal atrial fibrillation. He is not having chest pain, but he said he becomes short of breath with minimal activity. MEDICATIONS PRIOR TO ADMISSION: 1. He takes amiodarone. He is uncertain about but it sounds like he was taking amiodarone 200 mg a day. 2. Apixaban 5 mg twice a day. 3. Carvedilol 6.25 mg twice a day. 4. Lisinopril 10 mg a day. 5. Gabapentin. As mentioned, there is some confusion about his outpatient medicine. REVIEW OF SYSTEMS: GENERAL: Positive for weakness and fatigue with any type of activity. VISION: No changes. HEARING: No changes. PULMONARY: Short of breath and cough. CARDIAC: No chest pain. GASTROINTESTINAL: No nausea, vomiting, or diarrhea. SKIN: No rashes. NEUROLOGIC: No unilateral weakness or numbness. PSYCHIATRIC: No unusual depression or anxiety. ALLERGIES: NONE KNOWN. SOCIAL HISTORY: Previous smoker, but no longer smokes. PHYSICAL EXAMINATION: GENERAL: This is a pleasant gentleman, in no distress. VITAL SIGNS: Blood pressure 140/70. Pulse 65 and regular. NECK: Veins normal. Carotid with normal upstrokes. LUNGS: Clear. CARDIAC: Normal S1, normal S2. There is no murmur, rub, or gallop. ABDOMEN: Soft, nontender. EXTREMITIES: Warm and dry. There is no significant edema. PERTINENT LABORATORY DATA: The COVID test was positive. His BNP was not elevated. Other laboratory; C-reactive protein is 2.06 and ferritin 264, indicating some degree of inflammatory state. ASSESSMENT: 1. COVID infection. 2. Paroxysmal atrial fibrillation, currently in sinus rhythm. 3. History of heart failure, apparently diastolic. 4. Short of breath with minimal activity and his oxygen saturations dropped with minimal activity. At this point, it is unclear if all of his symptoms are related to COVID or whether he may be in some diastolic heart failure. He does not have severe infiltrates on his chest x-ray compatible with severe COVID pneumonia. I think it is really unclear how much of this shortness of breath is pulmonary, how much is cardiac give him one dose of low-dose furosemide and potassium. Generally, if he is in heart failure, he will have an excellent response to the diuretic. Reassess tomorrow. He is also taking amiodarone here. He is uncertain about his home medicines, that will need to be further questioned. He is not certain at this point. Job ID: [id number]
[2020-03-07] MEDS: Gabapentin 400 MG CAP PO SCH (20:18)
[2020-03-07] MEDS: Doxycycline 100 MG CAP PO SCH (20:18)
[2020-03-07] MEDS: Carbidopa/Levodopa 25-100 mg Tablet PO SCH (20:19)
[2020-03-07] MEDS: Apixaban 5 MG TAB PO SCH (20:19)
[2020-03-08] MEDS: Albuterol 200 PUFF (6.7GM INHALER) INH SCH ×6 (03:24→20:11)
[2020-03-08] MEDS: Acetaminophen 325 MG TAB PO PRN ×4 (03:44→23:06)
[2020-03-08] MEDS ORDERED: guaiFENesin 200 MG TAB PO PRN (03:46)
[2020-03-08 04:53] LABS: #Monocytes 0.5 thou/uL (0.11-0.59); #Neutrophils 4.7 thou/uL (1.40-6.50); %Basophils 0.4 % (0.0-1.0); %Lymphocytes 16.1 % (21.0-51.0); %Monocytes 7.3 % (0.0-10.0); %Neutrophils 76.2 % (42.0-75.0); Hemoglobin 12.8 g/dL (14.0-18.0); Mean Corpuscular HGB CONC 31.7 g/dL (32.0-36.0); Mean Corpuscular Hemoglobin 30.1 pg (27.0-31.0); Mean Platelet Volume 8.1 fL (7.4-10.4); Platelet Count 153 thou/uL (130-400); RBC Distribution Width 12.4 % (11.5-14.5); Red Blood Cell (RBC) Count 4.25 mill/uL (4.70-6.10); White Blood Cell (WBC) Count 6.2 thou/uL (4.8-10.8)
[2020-03-08 05:19] LABS: ALT (SGPT) 11 U/L (8-55); AST (SGOT) 33 U/L (5-34); Albumin 3.9 g/dL (3.4-4.8); Alkaline Phosphatase 57 U/L (40-110); Anion Gap 14 mmol/L (10-20); BUN (Urea Nitrogen) 18 mg/dL (8.4-25.7); Bilirubin, Total 0.3 mg/dL (0.2-1.2); CRP (Inflammatory) 1.14 mg/dL (= or < 0.5); Calc. Creatinine Clearance 114 mL/min (70-130); Calcium 8.5 mg/dL (7.8-10.44); Carbon Dioxide 31 mmol/L (23-31); Chloride 100 mmol/L (98-107); Globulin 3.1 g/dL (2.4-3.5); Glucose 102 mg/dL (80-115); Magnesium 1.8 mg/dL (1.6-2.6); Phosphorus 2.9 mg/dL (2.3-4.7); Potassium 4.5 mmol/L (3.5-5.1); Sodium 140 mmol/L (136-145)
[2020-03-08] MEDS: Mometasone 200 MCG/Formoterol 5 MCG 120 PUFF INHALER INH SCH ×2 (05:47→17:39)
[2020-03-08] MEDS: Carvedilol 3.125 MG TAB PO SCH ×2 (09:33→17:03)
[2020-03-08] MEDS: Escitalopram Oxalate 20 mg Tablet PO SCH (09:33)
[2020-03-08] MEDS: Amiodarone 200 MG TAB PO SCH (09:34)
[2020-03-08] MEDS: Gabapentin 400 MG CAP PO SCH ×2 (09:34→20:12)
[2020-03-08] MEDS: Doxycycline 100 MG CAP PO SCH ×2 (09:34→20:11)
[2020-03-08] MEDS: Apixaban 5 MG TAB PO SCH ×2 (09:34→20:13)
[2020-03-08] MEDS: Ascorbic Acid 500 mg Chewable Tablet PO SCH (09:34)
[2020-03-08] MEDS: Furosemide 20 MG TAB PO SCH (09:34)
[2020-03-08] MEDS: Dexamethasone 4 mg/ml Vial SLOW IVP SCH (09:35)
[2020-03-08] MEDS: Zinc Sulfate 220 MG CAP PO SCH (09:41)
[2020-03-08] MEDS: Cholecalciferol 1,000 UNITS (25 MCG) TAB PO SCH (09:41)
[2020-03-08] MEDS ORDERED: Promethazine 25 MG TAB PO PRN (11:37)
--- NOTE | 2020-03-08 11:58 | PDOC.HOSPP ---
- Subjective Encounter Date: 03/07/20 Encounter Time: 14:00 Subjective: Patient seen and examined for shortness of breath with atrial fibrillation. Feels generally weak and fatigued. Short of breath on [id number] exertion. Dry cough. Denies any chest pain or palpitations - Objective Vital Signs & Weight: Vital Signs (12 hours) Temp Pulse Resp BP Pulse Ox 03/08/20 08:00 98.2 F 77 14 129/78 98 03/08/20 03:20 98.1 F 82 20 146/69 H 97 Weight Admit Weight 258 lb 3.2 oz Weight 258 lb 3.2 oz I&O: 03/07/20 03/08/20 03/09/20 06:59 06:59 06:59 Intake Total 74.3 800 Output Total 600 2050 Balance -525.7 -1250 Result Diagrams: 03/08/20 04:17 03/08/20 04:17 Additional Labs: 03/08/20 04:17 03/08/20 04:17 Abnormal Lab Results - Last 48 hrs 03/06/20 14:55: C-Reactive Protein 2.06 H 03/07/20 09:58: AST 35 H 03/07/20 09:58: WBC 3.8 L, RBC 3.92 L, Hgb 12.3 L, Hct 36.5 L, MCH 31.3 H, Monocytes % 12.3 H, Lymphocytes # 1.0 L Radiology Reviewed by me: Yes (Chest x-rayno new changes) EKG Reviewed by me: Yes (Sinus rhythm on telemetry) Hospitalist ROS - Review of Systems Constitutional: denies: fever, chills, sweats, weakness, malaise, other Gastrointestinal: denies: nausea, vomiting, abdominal pain, diarrhea, constipation, melena, hematochezia, other - Medication Medications: Active Medications Generic Name Dose Route Start Last Admin Trade Name Freq PRN Reason Stop Dose Admin Acetaminophen 650 mg 03/07/20 09:22 03/08/20 11:36 Acetaminophen 325 Mg Tab PO 650 mg Q4H PRN Administration Headache/Fever/Mild Pain (1-3) Albuterol Sulfate 0 puff 03/07/20 10:30 03/08/20 09:35 Albuterol 200 Puff (6.7gm Inhaler) INH 2 puff [id number] TANYA Administration Amiodarone HCl 200 mg 03/08/20 09:00 03/08/20 09:34 Amiodarone 200 Mg Tab PO 200 mg DAILY TANYA Administration Apixaban 5 mg 03/07/20 21:00 03/08/20 09:34 Apixaban 5 Mg Tab PO 5 mg BID TANYA Administration Ascorbic Acid 1,000 mg 03/07/20 09:00 03/08/20 09:34 Ascorbic Acid 500 Mg Chewable Tablet PO 1,000 mg DAILY TANYA Administration Carbidopa/Levodopa 1 tab 03/07/20 21:00 03/07/20 20:19 Carbidopa/Levodopa 25-100 Mg Tablet PO 1 tab HS TANYA Administration Carvedilol 3.125 mg 03/07/20 17:00 03/08/20 09:33 Carvedilol 3.125 Mg Tab PO 3.125 mg BID-WM TANYA Administration Cholecalciferol 1,000 units 03/07/20 09:00 03/08/20 09:41 Cholecalciferol 1,000 Units (25 Mcg) Tab PO 1,000 units DAILY TANYA Administration Dexamethasone 6 mg 03/08/20 09:00 03/08/20 09:35 Dexamethasone 4 Mg/Ml Vial SLOW IVP 6 mg DAILY TANYA Administration Doxycycline Hyclate 100 mg 03/07/20 21:00 03/08/20 09:34 Doxycycline 100 Mg Cap PO 100 mg BID TANYA Administration Escitalopram Oxalate 10 mg 03/08/20 09:00 03/08/20 09:33 Escitalopram Oxalate 20 Mg Tablet PO 10 mg DAILY TANYA Administration Fluticasone Propionate 0 gm 03/07/20 14:00 03/07/20 16:11 Fluticasone Propionate Nasal [place] 16 Gm Bottle NASAL 2 spray Q24HR TANYA Administration Furosemide 20 mg 03/08/20 09:00 03/08/20 09:34 Furosemide 20 Mg Tab PO 20 mg DAILY TANYA Administration Gabapentin 400 mg 03/07/20 21:00 03/08/20 09:34 Gabapentin 400 Mg Cap PO 400 mg BID TANYA Administration Guaifenesin 200 mg 03/08/20 03:46 03/08/20 04:23 Guaifenesin 200 Mg Tab PO 200 mg Q4H PRN Administration Congestion Mometasone Furoate/Formoterol Fumar 2 puff 03/07/20 18:30 03/08/20 05:47 Mometasone 200 Mcg/Formoterol 5 Mcg 120 Puff Inhaler INH 2 puff BID-RT TANYA Administration Pantoprazole Sodium 40 mg 03/07/20 09:00 03/08/20 09:33 Pantoprazole 40 Mg Tab PO 40 mg DAILY TANYA Administration Zinc Sulfate 220 mg 03/07/20 09:00 03/08/20 09:41 Zinc Sulfate 220 Mg Cap PO 220 mg DAILY TANYA Administration - Exam General Appearance: awake alert Neck: supple, no JVD Heart: RRR, no gallops, no rubs, normal peripheral pulses Respiratory: no wheezes, no rales, normal chest expansion, rhonchi Gastrointestinal: soft, non-distended, normal bowel sounds, no guarding, no rigidity Extremities: no cyanosis, no clubbing Skin: normal turgor Neurological: no new deficit Musculoskeletal: generalized weakness Psychiatric: normal affect, A&O x 3 Hosp A/P - Plan DVT proph w/lovenox, DVT proph w/SCDs Patient is a 64-year-old male with paroxysmal atrial fibrillation, COPD and hypertension presented to the hospital 03/06 with palpitations along with fever, chills and nausea. He also had some chest heaviness without any syncope. His initial vital signs in the emergency room showed temperature 99.6 with pulse rate of 173, respiration of 30 and blood pressure of 101/80. He received Cardizem followed by digoxin with subsequent cardioversion. Impression: Generalized weakness/sepsis due to COVID-19 infection/COPD exacerbation with suspected COVID-19 pneumoniaPOA Atrial fibrillation with rapid ventricular response s/p emergent cardioversion Chronic anticoagulation COPD CKD stage II Restless leg syndrome Anxiety Chronic diastolic heart failure Obesity with a BMI 38.1 Hyponatremia Chronic anemia suspected due to nutritional deficiency Recent colonoscopy Chronic hypoxic respiratory failure on 3 L oxygen Recent pneumonia diagnosed at our urgent center on doxycycline Plan: Home medications are unclear at this time. He is unable to remember most of his medications. He states that he takes Eliquis and amiodarone twice a day. We will start him on amiodarone 200 mg twice daily with Eliquis 5 mg twice daily. Continue doxycycline for recent pneumonia. Will add Decadron for COPD exacerbation with bronchodilators/Dulera. Will probably need repeat chest x-ray in a.m. Resume other home medications once verified. Empiric antibiotics. Add Dulera. Add PPI. A.mMo labs
--- NOTE | 2020-03-08 12:39 | RAD ---
Portable frontal chest radiograph: 03/08/2020 COMPARISON: 03/06/2020 HISTORY: Short of breath FINDINGS: Stable elevation of the right hemidiaphragm and atherosclerotic calcification of the aortic arch. There is increased linear interstitial density with areas of superimposed groundglass opacity suspected peripherally within the right upper lobe, not definitely seen on 08/13/2019. IMPRESSION: Interstitial prominence and possible groundglass opacity in the lateral right upper lobe region. Findings could be related to acute infectious pneumonitis (including atypical infectious pneumonitis such as Covid pneumonia) in the proper clinical setting. Alternatively, findings may be o n the basis of chronic interstitial disease, more prominent on this examination secondary to technique. Findings could be better assessed via CT if clinically warranted.
[2020-03-08] MEDS ORDERED: Protamine Sulfate 50 MG/5 ML VIAL ONE (13:31)
[2020-03-08] MEDS: Cefepime 1 GM in Sodium Chloride 0.9% 100 ML IVPB SCH (13:44)
[2020-03-08] MEDS: Fluticasone Propionate Nasal Spray 16 gm Bottle NASAL SCH (13:46)
[2020-03-08] MEDS ORDERED: Furosemide 40 MG/4 ML VIAL ONE (13:48)
[2020-03-08] MEDS ORDERED: Cepastat Lozenges 1 LOZ PO PRN (14:59)
[2020-03-08] MEDS: Carbidopa/Levodopa 25-100 mg Tablet PO SCH (20:13)
--- NOTE | 2020-03-08 21:43 | PDOC.HOSPP ---
- Subjective Encounter Date: 03/08/20 Encounter Time: 15:00 Subjective: Patient seen and examined for respiratory failure with atrial fibrillation with RVR. Features and weak and fatigued. Denies any new complaints. - Objective Vital Signs & Weight: Vital Signs (12 hours) Temp Pulse Resp BP Pulse Ox 03/08/20 16:00 98.3 F 85 16 134/79 100 03/08/20 11:20 98.5 F 85 18 120/76 98 Weight Admit Weight 258 lb 3.2 oz Weight 258 lb 3.2 oz I&O: 03/07/20 03/08/20 03/09/20 06:59 06:59 06:59 Intake Total 74.3 800 711 Output Total 600 2050 175 Balance -525.7 -1250 536 Result Diagrams: 03/08/20 04:17 03/08/20 04:17 Additional Labs: Abnormal Lab Results - Last 48 hrs 03/07/20 09:58: AST 35 H 03/07/20 09:58: WBC 3.8 L, RBC 3.92 L, Hgb 12.3 L, Hct 36.5 L, MCH 31.3 H, Mo nocytes % 12.3 H, Lymphocytes # 1.0 L 03/08/20 04:17: C-Reactive Protein 1.14 H 03/08/20 04:17: RBC 4.25 L, Hgb 12.8 L, Hct 40.3 L, MCHC 31.7 L, Neutrophils % 76.2 H, Lymphocytes % 16.1 L, Lymphocytes # 1.0 L EKG Reviewed by me: Yes (Sinus rhythm on telemetry) Hospitalist ROS - Review of Systems Cardiovascular: denies: chest pain, palpitations, orthopnea, paroxysmal noc. dyspnea, edema, light headedness, other Gastrointestinal: denies: nausea, vomiting, abdominal pain, diarrhea, constipation, melena, hematochezia, other - Medication Medications: Active Medications Generic Name Dose Route Start Last Admin Trade Name Freq PRN Reason Stop Dose Admin Acetaminophen 650 mg 03/07/20 09:22 03/08/20 17:11 Acetaminophen 325 Mg Tab PO 650 mg Q4H PRN Administration Headache/Fever/Mild Pain (1-3) Albuterol Sulfate 0 puff 03/07/20 10:30 03/08/20 20:11 Albuterol 200 Puff (6.7gm Inhaler) INH 2 puff [id number] TANYA Administration Amiodarone HCl 200 mg 03/08/20 09:00 03/08/20 09:34 Amiodarone 200 Mg Tab PO 200 mg DAILY TANYA Administration Apixaban 5 mg 03/07/20 21:00 03/08/20 20:13 Apixaban 5 Mg Tab PO 5 mg BID TANYA Administration Ascorbic Acid 1,000 mg 03/07/20 09:00 03/08/20 09:34 Ascorbic Acid 500 Mg Chewable Tablet PO 1,000 mg DAILY TANYA Administration Carbidopa/Levodopa 1 tab 03/07/20 21:00 03/08/20 20:13 Carbidopa/Levodopa 25-100 Mg Tablet PO 1 tab HS TANYA Administration Carvedilol 3.125 mg 03/07/20 17:00 03/08/20 17:03 Carvedilol 3.125 Mg Tab PO 3.125 mg BID-WM TANYA Administration Cholecalciferol 1,000 units 03/07/20 09:00 03/08/20 09:41 Cholecalciferol 1,000 Units (25 Mcg) Tab PO 1,000 units DAILY TANYA Administration Dexamethasone 6 mg 03/08/20 09:00 03/08/20 09:35 Dexamethasone 4 Mg/Ml Vial SLOW IVP 6 mg DAILY TANYA Administration Doxycycline Hyclate 100 mg 03/07/20 21:00 03/08/20 20:11 Doxycycline 100 Mg Cap PO 100 mg BID TANYA Administration Escitalopram Oxalate 10 mg 03/08/20 09:00 03/08/20 09:33 Escitalopram Oxalate 20 Mg Tablet PO 10 mg DAILY TANYA Administration Fluticasone Propionate 0 gm 03/07/20 14:00 03/08/20 13:46 Fluticasone Propionate Nasal [place] 16 Gm Bottle NASAL 2 spray Q24HR TANYA Administration Furosemide 20 mg 03/08/20 09:00 03/08/20 09:34 Furosemide 20 Mg Tab PO 20 mg DAILY TANYA Administration Gabapentin 400 mg 03/07/20 21:00 03/08/20 20:12 Gabapentin 400 Mg Cap PO 400 mg BID TANYA Administration Guaifenesin 200 mg 03/08/20 03:46 03/08/20 04:23 Guaifenesin 200 Mg Tab PO 200 mg Q4H PRN Administration Congestion Cefepime HCl 1 gm/ Sodium 100 mls @ 200 mls/hr 03/08/20 13:00 03/08/20 13:44 Chloride IVPB 100 mls 0100,1300 TANYA Administration Mometasone Furoate/Formoterol Fumar 2 puff 03/07/20 18:30 03/08/20 17:39 Mometasone 200 Mcg/Formoterol 5 Mcg 120 Puff Inhaler INH 2 puff BID-RT TANYA Administration Pantoprazole Sodium 40 mg 03/07/20 09:00 03/08/20 09:33 Pantoprazole 40 Mg Tab PO 40 mg DAILY TANYA Administration Throat Lozenges 1 marija 03/08/20 14:59 03/08/20 17:06 Cepastat Lozenges 1 Marija PO 1 marija Q2H PRN Administration Sore Throat Zinc Sulfate 220 mg 03/07/20 09:00 03/08/20 09:41 Zinc Sulfate 220 Mg Cap PO 220 mg DAILY TANYA Administration - Exam General Appearance: awake alert Neck: supple, no JVD Heart: RRR, no gallops Respiratory: no wheezes, rales, rhonchi Gastrointestinal: soft, no guarding, no rigidity Extremities: no cyanosis Neurological: no new deficit Musculoskeletal: generalized weakness Psychiatric: A&O x 3 Hosp A/P - Plan Patient is a 64-year-old male with paroxysmal atrial fibrillation, COPD and hypertension presented to the hospital 03/06 with palpitations along with fever, chills and nausea. He also had some chest heaviness without any syncope. His initial vital signs in the emergency room showed temperature 99.6 with pulse rate of 173, respiration of 30 and blood pressure of 101/80. He received Cardizem followed by digoxin with subsequent cardioversion. Impression: Generalized weakness/sepsis due to COVID-19 infection/COPD exacerbation with suspected COVID-19 pneumonia Atrial fibrillation with rapid ventricular response s/p emergent cardioversion Chronic anticoagulation COPD CKD stage II Restless leg syndrome Anxiety Chronic diastolic heart failure Obesity with a BMI 38.1 Hyponatremia Chronic anemia suspected due to nutritional deficiency Recent colonoscopy Chronic hypoxic respiratory failure on 3 L oxygen Recent pneumonia diagnosed at our urgent center on doxycycline Plan: Vital signs remained stable. Continue supportive care. Continue Eliquis with amiodarone. Cardiology input appreciated. Replace magnesium. Chest x-ray consistent with COVID pneumonia. Continue other medications as above. Will continue doxycycline/Cefepime/dexamethasone. A.m. labs. 03/07 Home medications are unclear at this time. He is unable to remember most of his medications. He states that he takes Eliquis and amiodarone twice a day. We will start him on amiodarone 200 mg twice daily with Eliquis 5 mg twice daily. Continue doxycycline for recent pneumonia. Will add Decadron for COPD exacerbation with bronchodilators/Dulera. Will probably need repeat chest x-ray in a.m. Resume other home medications once verified. Empiric antibiotics. Add Dulera. Add PPI. A.m. labs
[2020-03-08] MEDS ORDERED: Magnesium 2 GM/50 ML 2 GM in Premix Bag 1 BAG IVPB SCH (22:15)
[2020-03-09] MEDS: Cefepime 1 GM in Sodium Chloride 0.9% 100 ML IVPB SCH ×2 (00:52→13:34)
[2020-03-09] MEDS: Albuterol 200 PUFF (6.7GM INHALER) INH SCH ×6 (02:52→22:58)
[2020-03-09 05:27] LABS: #Lymphocytes 0.6 thou/uL (1.20-3.40); #Monocytes 0.4 thou/uL (0.11-0.59); #Neutrophils 1.9 thou/uL (1.40-6.50); %Basophils 0.2 % (0.0-1.0); %Eosinophils 0.2 % (0.0-10.0); %Lymphocytes 21.2 % (21.0-51.0); %Neutrophils 65.4 % (42.0-75.0); Hemoglobin 12.2 g/dL (14.0-18.0); Mean Corpuscular HGB CONC 32.5 g/dL (32.0-36.0); Mean Corpuscular Hemoglobin 30.2 pg (27.0-31.0); Mean Corpuscular Volume 92.7 fL (78.0-98.0); Platelet Count 160 thou/uL (130-400); RBC Distribution Width 12.1 % (11.5-14.5); Red Blood Cell (RBC) Count 4.04 mill/uL (4.70-6.10); White Blood Cell (WBC) Count 2.9 thou/uL (4.8-10.8)
[2020-03-09 05:44] LABS: ALT (SGPT) 17 U/L (8-55); AST (SGOT) 53 U/L (5-34); Albumin 3.8 g/dL (3.4-4.8); Alkaline Phosphatase 57 U/L (40-110); Anion Gap 13 mmol/L (10-20); BUN (Urea Nitrogen) 17 mg/dL (8.4-25.7); Bilirubin, Total 0.3 mg/dL (0.2-1.2); Calc. Creatinine Clearance 142 mL/min (70-130); Calcium 8.5 mg/dL (7.8-10.44); Carbon Dioxide 30 mmol/L (23-31); Globulin 3.1 g/dL (2.4-3.5); Glucose 122 mg/dL (80-115); Potassium 4.3 mmol/L (3.5-5.1); Protein, Total 6.9 g/dL (5.8-8.1)
[2020-03-09] MEDS: Mometasone 200 MCG/Formoterol 5 MCG 120 PUFF INHALER INH SCH ×2 (05:52→18:39)
[2020-03-09 06:04] LABS: Chloride 100 mmol/L (98-107); Sodium 139 mmol/L (136-145)
[2020-03-09] MEDS: Zinc Sulfate 220 MG CAP PO SCH (07:45)
[2020-03-09] MEDS: Gabapentin 400 MG CAP PO SCH ×2 (07:45→20:50)
[2020-03-09] MEDS: Ascorbic Acid 500 mg Chewable Tablet PO SCH (07:45)
[2020-03-09] MEDS: Doxycycline 100 MG CAP PO SCH ×2 (07:45→20:49)
[2020-03-09] MEDS: Carvedilol 3.125 MG TAB PO SCH ×2 (07:46→18:39)
[2020-03-09] MEDS: Escitalopram Oxalate 20 mg Tablet PO SCH (07:46)
[2020-03-09] MEDS: Apixaban 5 MG TAB PO SCH ×2 (07:46→20:49)
[2020-03-09] MEDS: Amiodarone 200 MG TAB PO SCH (07:47)
[2020-03-09] MEDS: Cholecalciferol 1,000 UNITS (25 MCG) TAB PO SCH (07:47)
[2020-03-09] MEDS: Furosemide 20 MG TAB PO SCH (07:47)
[2020-03-09] MEDS: Dexamethasone 4 mg/ml Vial SLOW IVP SCH (07:47)
[2020-03-09] MEDS: Fluticasone Propionate Nasal Spray 16 gm Bottle NASAL SCH (13:37)
--- NOTE | 2020-03-09 18:15 | PDOC.HOSPP ---
- Subjective Encounter Date: 03/09/20 Encounter Time: 12:00 Subjective: Patient seen and examined for respiratory failure. Symptomatically feeling better. Dry cough. Short of breath on [id number] exertion. - Objective Vital Signs & Weight: Vital Signs (12 hours) Temp Pulse Resp BP Pulse Ox 03/09/20 16:44 97.6 F 68 18 125/67 100 03/09/20 11:02 98.5 F 80 20 107/77 99 03/09/20 08:02 97.8 F 72 20 131/77 100 Weight Admit Weight 258 lb 3.2 oz Weight 258 lb 3.2 oz I&O: 03/08/20 03/09/20 03/10/20 06:59 06:59 06:59 Intake Total 800 1051 Output Total 2050 475 Balance -1250 576 Result Diagrams: 03/09/20 04:36 03/09/20 04:36 Additional Labs: Abnormal Lab Results - Last 48 hrs 03/08/20 04:17: C-Reactive Protein 1.14 H 03/08/20 04:17: RBC 4.25 L, Hgb 12.8 L, Hct 40.3 L, MCHC 31.7 L, Neutrophils % 76.2 H, Lymphocytes % 16.1 L, Lymphocytes # 1.0 L 03/09/20 04:36: AST 53 H 03/09/20 04:36: WBC 2.9 L, RBC 4.04 L, Hgb 12.2 L, Hct 37.5 L, Monocytes % 13.0 H, Lymphocytes # 0.6 L EKG Reviewed by me: Yes (Sinus rhythm on telemetry) Hospitalist ROS - Review of Systems Cardiovascular: denies: chest pain, palpitations, orthopnea, paroxysmal noc. dyspnea, edema, light headedness, other Gastrointestinal: denies: nausea, vomiting, abdominal pain, diarrhea, constipation, melena, hematochezia, other - Medication Medications: Active Medications Generic Name Dose Route Start Last Admin Trade Name Freq PRN Reason Stop Dose Admin Acetaminophen 650 mg 03/07/20 09:22 03/08/20 23:06 Acetaminophen 325 Mg Tab PO 650 mg Q4H PRN Administration Headache/Fever/Mild Pain (1-3) Albuterol Sulfate 0 puff 03/07/20 10:30 03/09/20 13:38 Albuterol 200 Puff (6.7gm Inhaler) INH 2 puff [id number] TANYA Administration Amiodarone HCl 200 mg 03/08/20 09:00 03/09/20 07:47 Amiodarone 200 Mg Tab PO 200 mg DAILY TANYA Administration Apixaban 5 mg 03/07/20 21:00 03/09/20 07:46 Apixaban 5 Mg Tab PO 5 mg BID TANYA Administration Ascorbic Acid 1,000 mg 03/07/20 09:00 03/09/20 07:45 Ascorbic Acid 500 Mg Chewable Tablet PO 1,000 mg DAILY TANYA Administration Carbidopa/Levodopa 1 tab 03/07/20 21:00 03/08/20 20:13 Carbidopa/Levodopa 25-100 Mg Tablet PO 1 tab HS TANYA Administration Carvedilol 3.125 mg 03/07/20 17:00 03/09/20 07:46 Carvedilol 3.125 Mg Tab PO 3.125 mg BID-WM TANYA Administration Cholecalciferol 1,000 units 03/07/20 09:00 03/09/20 07:47 Cholecalciferol 1,000 Units (25 Mcg) Tab PO 1,000 units DAILY TANYA Administration Cyclobenzaprine HCl 10 mg 03/07/20 19:30 03/08/20 23:06 Cyclobenzaprine 10 Mg Tab PO 10 mg HS PRN Administration Muscle Spasm Dexamethasone 6 mg 03/08/20 09:00 03/09/20 07:47 Dexamethasone 4 Mg/Ml Vial SLOW IVP 6 mg DAILY TANYA Administration Doxycycline Hyclate 100 mg 03/07/20 21:00 03/09/20 07:45 Doxycycline 100 Mg Cap PO 100 mg BID TANYA Administration Escitalopram Oxalate 10 mg 03/08/20 09:00 03/09/20 07:46 Escitalopram Oxalate 20 Mg Tablet PO 10 mg DAILY TANYA Administration Fluticasone Propionate 0 gm 03/07/20 14:00 03/09/20 13:37 Fluticasone Propionate Nasal [place] 16 Gm Bottle NASAL 2 spray Q24HR TANYA Administration Furosemide 20 mg 03/08/20 09:00 03/09/20 07:47 Furosemide 20 Mg Tab PO 20 mg DAILY TANYA Administration Gabapentin 400 mg 03/07/20 21:00 03/09/20 07:45 Gabapentin 400 Mg Cap PO 400 mg BID TANYA Administration Guaifenesin 200 mg 03/08/20 03:46 03/08/20 04:23 Guaifenesin 200 Mg Tab PO 200 mg Q4H PRN Administration Congestion Cefepime HCl 1 gm/ Sodium 100 mls @ 200 mls/hr 03/08/20 13:00 03/09/20 13:34 Chloride IVPB 100 mls 0100,1300 TANYA Administration Mometasone Furoate/Formoterol Fumar 2 puff 03/07/20 18:30 03/09/20 05:52 Mometasone 200 Mcg/Formoterol 5 Mcg 120 Puff Inhaler INH 2 puff BID-RT TANYA Administration Pantoprazole Sodium 40 mg 03/07/20 09:00 03/09/20 07:47 Pantoprazole 40 Mg Tab PO 40 mg DAILY TANYA Administration Throat Lozenges 1 marija 03/08/20 14:59 03/08/20 17:06 Cepastat Lozenges 1 Marija PO 1 marija Q2H PRN Administration Sore Throat Zinc Sulfate 220 mg 03/07/20 09:00 03/09/20 07:45 Zinc Sulfate 220 Mg Cap PO 220 mg DAILY TANYA Administration - Exam General Appearance: awake alert Heart: RRR, no gallops Respiratory: no wheezes, rales, rhonchi Gastrointestinal: soft, non-distended, normal bowel sounds Extremities: no cyanosis Neurological: no new deficit Psychiatric: A&O x 3 Hosp A/P - Plan DVT proph w/SCDs Patient is a 64-year-old male with paroxysmal atrial fibrillation, COPD and hypertension presented to the hospital 03/06 with palpitations along with fever, chills and nausea. He also had some chest heaviness without any syncope. His initial vital signs in the emergency room showed temperature 99.6 with pulse rate of 173, respiration of 30 and blood pressure of 101/80. He received Car dizem followed by digoxin with subsequent cardioversion. Impression: Generalized weakness/sepsis due to COVID-19 infection/COPD exacerbation with suspected COVID-19 pneumonia Atrial fibrillation with rapid ventricular response s/p emergent cardioversion Chronic anticoagulation COPD CKD stage II Restless leg syndrome Anxiety Chronic diastolic heart failure Obesity with a BMI 38.1 Hyponatremia Chronic anemia suspected due to nutritional deficiency Recent colonoscopy Chronic hypoxic respiratory failure on 3 L oxygen Recent pneumonia diagnosed at our urgent center on doxycycline Plan: Patient remains in sinus rhythm. Vital signs stable. Chest x-ray yesterday was consistent with COVID-19 pneumonia. Patient remains on his baseline 3 L home oxygen. Continue IV antibiotics, bronchodilators with dexamethasone. Continue current dose of Eliquis, amiodarone and carvedilol. Will DC in 24 hours if stable. Patient understands above plan of care 03/08 Vital signs remained stable. Continue supportive care. Continue Eliquis with amiodarone. Cardiology input appreciated. Replace magnesium. Chest x-ray consistent with COVID pneumonia. Continue other medications as above. Will continue doxycycline/Cefepime/dexamethasone. A.m. labs. 03/07 Home medications are unclear at this time. He is unable to remember most of his medications. He states that he takes Eliquis and amiodarone twice a day. We will start him on amiodarone 200 mg twice daily with Eliquis 5 mg twice daily. Continue doxycycline for recent pneumonia. Will add Decadron for COPD exacerbation with bronchodilators/Dulera. Will probably need repeat chest x-ray in a.m. Resume other home medications once verified. Empiric antibiotics. Add Dulera. Add PPI. A.m. labs
[2020-03-09] MEDS: Carbidopa/Levodopa 25-100 mg Tablet PO SCH (20:49)
[2020-03-10] MEDS: Cefepime 1 GM in Sodium Chloride 0.9% 100 ML IVPB SCH ×2 (01:34→15:16)
[2020-03-10] MEDS: Albuterol 200 PUFF (6.7GM INHALER) INH SCH ×3 (01:35→15:16)
[2020-03-10] MEDS: Mometasone 200 MCG/Formoterol 5 MCG 120 PUFF INHALER INH SCH (06:28)
[2020-03-10] MEDS: Dexamethasone 4 mg/ml Vial SLOW IVP SCH (09:15)
[2020-03-10] MEDS: Amiodarone 200 MG TAB PO SCH (09:17)
[2020-03-10] MEDS: Furosemide 20 MG TAB PO SCH (09:17)
[2020-03-10] MEDS: Doxycycline 100 MG CAP PO SCH (09:17)
[2020-03-10] MEDS: Ascorbic Acid 500 mg Chewable Tablet PO SCH (09:17)
[2020-03-10] MEDS: Zinc Sulfate 220 MG CAP PO SCH (09:17)
[2020-03-10] MEDS: Carvedilol 3.125 MG TAB PO SCH (09:17)
[2020-03-10] MEDS: Cholecalciferol 1,000 UNITS (25 MCG) TAB PO SCH (09:17)
[2020-03-10] MEDS: Escitalopram Oxalate 20 mg Tablet PO SCH (09:17)
[2020-03-10] MEDS: Gabapentin 400 MG CAP PO SCH (09:17)
[2020-03-10] MEDS: Apixaban 5 MG TAB PO SCH (09:18)
[2020-03-10 09:44] VITALS: BP 144/85; TEMP 98.5
[2020-03-10] MEDS: Fluticasone Propionate Nasal Spray 16 gm Bottle NASAL SCH (15:16)
--- NOTE | 2020-03-10 20:11 | PDOC.DS.DS ---
Provider - Provider Date of Admission: 03/08/20 10:22 Date of Discharge: 03/10/20 Admitting Provider: Art Cameron MD Consultations: Cardiology Primary Care Physician: [facility] Hospital Course - Hospital Course Hospital Course: Patient is a 64-year-old male with paroxysmal atrial fibrillation, COPD and hypertension presented to the hospital 03/06 with palpitations along with fever, chills and nausea. He also had some chest heaviness without any syncope. His initial vital signs in the emergency room showed temperature 99.6 with pulse rate of 173, respiration of 30 and blood pressure of 101/80. He received Cardizem followed by digoxin with subsequent cardioversion in the emergency room. Please refer to the history and physical for further details. The patient was admitted to the hospital with a diagnosis of sepsis due to COVID-19 pneumonia with COPD exacerbation. He was started on O2 supplementation along with bronchodilators, antibiotics and Decadron. Shortness of breath has gradually improved he was also placed on amiodarone and Eliquis was resumed. His home medications were unclear on the day of admission. Patient remained in sinus rhythm. He will continue amiodarone, carvedilol along with Eliquis. Patient appears stable for discharge and is cleared by cardiology. Final diagnosis: Generalized weakness/sepsis due to COVID-19 infection/COPD exacerbation with suspected COVID-19 pneumonia Atrial fibrillation with rapid ventricular response s/p emergent cardioversion Chronic anticoagulation COPD CKD stage II Restless leg syndrome Anxiety Chronic diastolic heart failure Obesity with a BMI 38.1 Hyponatremia Chronic anemia suspected due to nutritional deficiency Recent colonoscopy Chronic hypoxic respiratory failure on 3 L oxygen Recent pneumonia on doxycycline on admission Resuscitation Status: 03/06/20 13:59 Resuscitation Status Routine Co-Sign Provider: Resuscitation Status: FULL: Full Resuscitation Discussed with: patient - Labs Lab Results: 03/09/20 04:36 03/09/20 04:36 Abnormal Lab Results - Last 48 hrs 03/09/20 04:36: AST 53 H 03/09/20 04:36: WBC 2.9 L, RBC 4.04 L, Hgb 12.2 L, Hct 37.5 L, Monocytes % 13.0 H, Lymphocytes # 0.6 L - Physical Exam Vitals: Vital Signs (12 hours) Temp Pulse Resp BP Pulse Ox 03/10/20 09:18 98.5 F 80 22 H 144/85 H 98 Weight Admit Weight 258 lb 3.2 oz Weight 258 lb 3.2 oz Physical Exam: The patient was seen and examined on the day of discharge. Plan - Discharge Medications Prescriptions: Amiodarone [Cordarone] 200 mg PO DAILY #30 tab Dexamethasone 6 mg PO ASDIR #7 tablet Home Medications: Medication Instructions Recorded Confirmed Type Carvedilol [Coreg] 3.125 mg PO BID 10/04/16 03/09/20 History Lisinopril 10 mg PO DAILY 10/04/16 03/07/20 History Albuterol Sulfate [Proair HFA] 2 puff NEB Q2HR PRN 12/04/17 03/09/20 History Escitalopram Oxalate 20 mg PO DAILY 06/06/18 03/09/20 History Gabapentin 600 mg PO BID 06/06/18 03/09/20 History Mometasone Furoate [Asmanex 200 mcg INH BID 06/06/18 03/09/20 History Twisthaler] Apixaban [Eliquis] 5 mg PO BID #60 tab 06/09/18 03/07/20 Rx Carbidopa/Levodopa 1 tab PO HS 03/07/20 03/07/20 History [Carbidopa-Levodopa 25-100 Tab] Carisoprodol 350 mg PO HS 03/07/20 03/07/20 History Furosemide 20 mg PO DAILY 03/07/20 03/07/20 History Nicotine Polacrilex [Nicorette] 2 mg .ROUTE PRN PRN 03/07/20 03/07/20 History Tiotropium Br/Olodaterol HCl 1 puff INH DAILY 03/07/20 03/07/20 History [Stiolto Respimat Inhal Panora] guaiFENesin [Guaifenesin] 400 mg PO TID PRN 03/09/20 03/09/20 History Amiodarone [Cordarone] 200 mg PO DAILY #30 tab 03/10/20 Rx Dexamethasone 6 mg PO ASDIR #7 tablet 03/10/20 Rx Allergies: No Known Allergies Allergy (Verified 03/06/20 19:34) PER PT - Follow up Plan Referrals: [facility] [Primary Care Provider] - 3 Days Ashwin Ventura MD [Active] - 14 Days Disposition: HOME Quality - Care Measures CORE MEASURES:: N/A
--- NOTE | 2020-03-27 22:47 | EKG ---
Test Reason : Blood Pressure : / mmHG Vent. Rate : 167 BPM Atrial Rate : 182 BPM P-R Int : 000 ms QRS Dur : 098 ms QT Int : 296 ms P-R-T Axes : 000 -50 094 degrees QTc Int : 493 ms Atrial fibrillation with rapid ventricular response Left anterior fascicular block Nonspecific ST abnormality , probably digitalis effect Abnormal QRS-T angle, consider primary T wave abnormality Abnormal ECG #1 Confirmed by JAIR STEPHEN, RYAN ([id number]), photographic editor OCTAVIA MILLS ([id number]) on 03/27/2020 10:47:18 PM Referred By: Confirmed By:RYAN ADAM MD
== END 2020-03-10 15:29 | disposition home or self-care (01) | DRG 871 ==
LOC: ERS 08:40 → 2SW 13:00 → OBSVTOIN 03-08 10:22
PROVIDERS: ADMIT Internal Medicine; ATTEND Internal Medicine
PROC: 8E0ZXY6 Isolation (ICD-10-PCS; principal; 2020-03-07)
PROC: 5A2204Z Restoration of Cardiac Rhythm, Single (ICD-10-PCS; 2020-03-08)
DX: A41.89 Other specified sepsis (principal); U07.1 COVID-19; J12.82 Pneumonia due to coronavirus disease 2019; J44.1 Chronic obstructive pulmonary disease with (acute) exacerbation; J44.0 Chronic obstructive pulmonary disease with (acute) lower respiratory infection; I50.32 Chronic diastolic (congestive) heart failure; I13.0 Hypertensive heart and chronic kidney disease with heart failure and stage 1 through stage 4 chronic kidney disease, or unspecified chronic kidney disease; E87.1 Hypo-osmolality and hyponatremia; J96.11 Chronic respiratory failure with hypoxia; G25.81 Restless legs syndrome; F51.01 Primary insomnia; F41.9 Anxiety disorder, unspecified; N18.2 Chronic kidney disease, stage 2 (mild); E66.9 Obesity, unspecified; D53.9 Nutritional anemia, unspecified; I48.0 Paroxysmal atrial fibrillation; Z90.49 Acquired absence of other specified parts of digestive tract; Z87.891 Personal history of nicotine dependence; Z79.01 Long term (current) use of anticoagulants; Z68.38 Body mass index [BMI] 38.0-38.9, adult; Z79.899 Other long term (current) drug therapy; Z82.49 Family history of ischemic heart disease and other diseases of the circulatory system
CPT/HCPCS: 0240U; 36415; 71045; 80053; 81003; 82550; 82728; 83605; 83690; 83735; 83880; 84100; 84443; 84484; 85025; 85379; 86140; 93005; 96365; 96366; 96367; 96375; 96376; G0378; J0456; J0692; J0696; J1100; J1160; J1940; J2720; J3475; J3490

== ENCOUNTER 2020-07-13 09:42 | Outpatient (CLI) | payer OTHER | END 2020-07-13 09:43 | disposition home or self-care (01) | LOC: BICRAD 09:42 | PROVIDERS: ATTEND Internal Medicine Critical Care Medicine | DX: R06.00 Dyspnea, unspecified (principal) | CPT/HCPCS: 71046 ==

== ENCOUNTER 2022-02-15 09:02 | Outpatient (CLI) | payer OTHER | END 2022-02-15 09:03 | disposition home or self-care (01) | LOC: RAD 09:02 | PROVIDERS: ATTEND Internal Medicine Critical Care Medicine | DX: J44.9 Chronic obstructive pulmonary disease, unspecified (principal) | CPT/HCPCS: 71046 ==

== ENCOUNTER 2023-08-02 10:14 | Outpatient (CLI) | payer OTHER | END 2023-08-02 10:15 | disposition home or self-care (01) | LOC: BICRAD 10:14 | PROVIDERS: ATTEND Chiropractor | DX: I48.91 Unspecified atrial fibrillation (principal) | CPT/HCPCS: 71046 ==